=== PATIENT | female | born 1950 | race Asian ===

== ENCOUNTER → 2022-04-12 09:58 | Outpatient (BNVA) | payer MEDICAID, SELFPAY | PROVIDERS: PCP Internal Medicine; Visit Provider Psychiatry & Neurology Neurology | DX: R51.9 Headache, unspecified (principal); G47.00 Insomnia, unspecified; R42 Dizziness and giddiness; Z86.73 Personal history of transient ischemic attack (TIA), and cerebral infarction without residual deficits | CPT/HCPCS: 99202 ==

== ENCOUNTER → 2022-04-19 09:54 | Outpatient (REF) | payer MEDICAID, SELFPAY | LOC: HO.SL 09:54 | PROVIDERS: PCP Internal Medicine; Visit Provider Psychiatry & Neurology Neurology | DX: Z13.89 Encounter for screening for other disorder (principal) ==

== ENCOUNTER → 2022-05-20 11:05 | Outpatient (REF) | payer MEDICAID, SELFPAY | LOC: HO.SL 11:05 | PROVIDERS: PCP Internal Medicine; Visit Provider Psychiatry & Neurology Neurology | DX: G47.00 Insomnia, unspecified (principal); G47.10 Hypersomnia, unspecified; R06.83 Snoring | CPT/HCPCS: 95806 ==

== ENCOUNTER → 2022-06-16 10:07 | Outpatient (BNVA) | payer MEDICAID, SELFPAY | PROVIDERS: PCP Internal Medicine; Visit Provider Psychiatry & Neurology Neurology | DX: R51.9 Headache, unspecified (principal); G89.29 Other chronic pain; G47.00 Insomnia, unspecified; R42 Dizziness and giddiness; Z86.73 Personal history of transient ischemic attack (TIA), and cerebral infarction without residual deficits | CPT/HCPCS: 99212 ==

== ENCOUNTER → 2022-06-29 10:09 | Outpatient (BNVA) | payer MEDICAID, SELFPAY | PROVIDERS: PCP Internal Medicine; Visit Provider Internal Medicine Rheumatology | DX: M75.41 Impingement syndrome of right shoulder (principal); M75.42 Impingement syndrome of left shoulder; M75.81 Other shoulder lesions, right shoulder; M75.82 Other shoulder lesions, left shoulder | CPT/HCPCS: 20610; 99212 ==

== ENCOUNTER 2022-09-01 10:19 | Outpatient (REF) | payer MEDICAID, SELFPAY ==
--- NOTE | ~2022-09-01 | MR_ITS ---
MRI OF THE BRAIN WITHOUT IV CONTRAST INDICATION: Headache. COMPARISON: None available. TECHNIQUE: Multiplanar multisequence MR imaging of the brain was obtained without IV contrast. FINDINGS: There is no hydrocephalus, extra-axial surface collection, or herniation. There is mild chronic microangiopathy an there are chronic infarcts involving the left greater then right cerebellum. The major flow voids at the skull base are preserved. There is no acute infarct on diffusion-weighted imaging. There is no intracranial hemorrhage on the gradient recalled echo acquisition. Chronic hemosiderin staining within the left greater then right cerebellum. The midline structures are normal. The cerebellar tonsils are normally positioned. The craniocervical junction is normal. Occipital craniotomy changes. MR/MR head/brain wo con IMPRESSION: No acute intracranial findings. There is mild chronic microangiopathy an there are chronic infarcts involving the left greater then right cerebellum. Chronic hemosiderin staining within the left greater then right cerebellum.
== END 2022-09-01 10:20 | disposition home or self-care (01) ==
LOC: HO.MRI 10:19
PROVIDERS: PCP Internal Medicine; Visit Provider Nurse Practitioner Family
DX: I61.9 Nontraumatic intracerebral hemorrhage, unspecified (principal); R51.9 Headache, unspecified
CPT/HCPCS: 70551

== ENCOUNTER 2022-09-07 14:00 | Outpatient (RCR) | payer MEDICAID, SELFPAY ==
--- NOTE | 2022-07-27 14:46 | MHC.PT.EP ---
[facility] [place] [facility] [place] [facility] [place] [facility] [address] Kamlesh Gonzalez [address] [phone] F: [phone] F: [phone] F: [phone] F: [phone] Physical Therapy Plan of Care Date of Evaluation: Date of Surgery: Diagnosis: RIGHT shoulder impingement LEFT shoulder impingement Assessment: Patient is a 71 y.o. Slovak speaking female who is referred to PT by Dr. Renzo Alcazar MD, with Dx of RIGHT and LEFT shoulder subacromial impingement. 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 Patient impairments include poor posture, pain, limited ROM, weakness. Patient current functional limitations are Unable to lie on her side, reaching overhead, putting on shirts, doing her hair, reaching to floor, reaching behind her back to shower. Patient will benefit from skilled PT to address aforementioned impairments and functional limitations to meet established goals. Frequency and Duration: The patient will be seen 1x/week for 4 weeks Short Term Goals: 2 weeks Patient demonstrates consistency and independence with HEP to self manage symptoms. Research Project Coordinator Goals: 4 weeks Patient presents with increased bilateral shoulder flexion 130 degrees to be able to reach to do her hair. 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 Treatment Plan: Modalities to reduce pain, spasms and effusion. Manual therapy to restore motion and function. Therapeutic exercise to improve strength and flexibility. Neuromuscular re-education for posture and balance. Therapeutic activities to return to functional activities of daily living. Electronically signed by: Clint Tolliver, PT, DPT Please sign and return to therapist. Thank you for your referral.
--- NOTE | 2022-10-12 15:03 | MHC.PT.DC ---
[facility] [place] Office [place] [facility] [place] Office [address] Kamlesh Gonzalez [address] [phone] F: [phone] F: [phone] F: [phone] F: [phone] Physical Therapy Discharge Report Diagnosis: RIGHT shoulder impingement LEFT shoulder impingement Date of Surgery: Date of Evaluation: 07/27/22 Date of Discharge: 10/12/22 Treatments to Date: 4 Cancellations to Date: 1 No Shows to Date: 1 Discharge Status: Discharge Summary: Patient ceased attending PT on her own accord. She was given HEP. Due to limited visits, difficulty determining effectiveness of PT interventions on patient condition. She is discharged from PT at this time. Electronically signed by: Clint Tolliver, PT, DPT Please sign and return to therapist. Thank you for your referral.
== END 2022-10-12 15:03 | disposition home or self-care (01) ==
LOC: HO.PT 14:00
PROVIDERS: PCP Internal Medicine; Visit Provider Internal Medicine Rheumatology
DX: M75.41 Impingement syndrome of right shoulder (principal); M75.42 Impingement syndrome of left shoulder
CPT/HCPCS: 97110; 97140; 97162; 97530

== ENCOUNTER 2022-10-19 10:24 | Outpatient (AMB) | payer MEDICAID, SELFPAY ==
--- NOTE | 2022-10-19 10:32 | A.OFFVIS_ITS ---
Intake Vital Signs 10/19/22 10:38 Weight 109 lb 2 oz BP 110/82 Blood Pressure Location Lt brachial Position Sitting Pulse 71 Pulse Source Pulse Oximeter Pulse Oximetry (%) 98 Oxygen Delivery Method Room Air Intake Visit Reasons: 4 mnts f/u appt - Confirmed Intake Note: F/U headaches, states headaches and dizziness starts on the daily bases at the same time in the afternoon, Virtualization Consultant Required: No Allergies diclofenac Allergy (Severe, Verified 10/19/22 10:34) Itching nabumetone [From Relafen] Allergy (Unknown, Verified 10/19/22 10:34) Rash HPI HPI Comments History of Present Illness Details 72 y/o female patient with hx of CVA and abnomal CT comes for follow up of headaches. Pt is accompanied by her son who helps her history and interpretation. Pt still reports dizziness with nausea and headaches. She reports neck muscle tightness, tried physical therapy for neck pain and back pain but it did not helpful. She stopped taking Tylenol and uses sparingly. The home sleep study was inconclusive. Pt did not sleep well during the sleep study, she was mostly awake. Pt has trouble falling asleep and staying asleep with daytime sleepiness. Pt tried melatonin 5 mg, but not really helpful. Pt is on magnesium 400 mg and gabapentin 200 mg qHS for headache prevention. PFSH Medical History Colon polyps CVA (cerebrovascular accident due to intracerebral hemorrhage) Diabetes GERD (gastroesophageal reflux disease) HTN (hypertension) Hyperlipidemia Lumbar spondylosis Osteoarthritis Osteopenia Post herpetic neuralgia Vitamin D deficiency Surgical History H/O: hysterectomy History of brain surgery Social History Alcohol intake: never Patient Tobacco Use Status: Never used Tobacco Review of Systems Const All systems reviewed & are unremarkable except as noted in HPI and below Physical Exam Vital Signs: Last Vital Signs Pulse 71 10/19/22 10:38 BP 110/82 10/19/22 10:38 Pulse Ox 98 10/19/22 10:38 Oxygen Delivery Method Room Air 10/19/22 10:38 Const General: cooperative, healthy appearing, comfortable and no acute distress Nutritional Appearance: average body habitus Orientation/consciousness: patient oriented x3 Eyes Pupils: Equal, round and reactive pupils present Neck Neck: Yes normal visual inspection Neuro Other: Mallampatti grade 4 General: patient oriented x3, tone normal and moves all extremities Cranial nerves: Yes Facial sensation intact/muscles of mastication intact, Yes Equal, round and reactive pupils present, Yes Bilaterally intact EOM present, Yes Nystagmus not present, Yes Normal facial strength present, Yes Midline tongue present and Yes Symmetric palate elevation present Cognition (Neuro): normal cognition Speech: Other speech findings present (Neuro) (normal) Gait exam (Neuro): Other gait observations present (mild slowness, unable to tandem) Motor exam (neuro): 5/5 motor strength present throughout and Normal motor muscle tone present throughout Assessment & Plan Assessment & Plan (1) Chronic headaches: Comment: ? tension headaches with analgesic overuse Code(s): R51.9 - Headache, unspecified; G89.29 - Other chronic pain (2) Insomnia: Comment: snoring hypersomnia Code(s): G47.00 - Insomnia, unspecified (3) CVA (cerebrovascular accident due to intracerebral hemorrhage): Comment: January 2022: Required decompressive procedure. Code(s): I61.9 - Nontraumatic intracerebral hemorrhage, unspecified (4) Dizziness: Comment: ? vertigo ? residual from her posterior circulation CVA Code(s): R42 - Dizziness and giddiness Plan Continue to take gabapentin 200mg and magnesium 400 mg qhs to help with sleep and headaches. Start vitamin B2 400 mg daily. Home sleep study was inconclusive, ordered PSG sleep study for detailed evaluation. Continue meclizine as needed. Orders: Orders RT PSG in-lab sleep study 10/19/22 G47.00 - Insomnia, unspecified, G89.29 - Other chronic pain, I10 - Essential (primary) hypertension, I61.9 - Nontraumatic intracerebral hemorrhage, unspecified, R40.0 - Somnolence, R51.9 - Headache, unspecified Medications: New riboflavin (vitamin B2) 400 mg PO DAILY 30 days 30 tabs 3RF magnesium oxide 400 mg PO DAILY 30 days 30 tabs 3RF Coding Level of Care Code Est Pt Level 4 (66282) Diagnoses Chronic headaches R51.9; G89.29 Insomnia G47.00 CVA (cerebrovascular accident due to intracerebral hemorrhage) I61.9 Dizziness R42
[2022-10-19 10:38] VITALS: BP 110/82; PULSE 71; O2SAT 98
== END 2022-10-19 11:05 | disposition home or self-care (01) ==
PROVIDERS: Visit Provider Nurse Practitioner Family
DX: R51.9 Headache, unspecified (principal); G89.29 Other chronic pain; G47.00 Insomnia, unspecified; I61.9 Nontraumatic intracerebral hemorrhage, unspecified; R42 Dizziness and giddiness
CPT/HCPCS: 99214

== ENCOUNTER → 2022-10-19 10:24 | Outpatient (BNVA) | payer MEDICAID, SELFPAY | PROVIDERS: Visit Provider Nurse Practitioner Family | DX: R51.9 Headache, unspecified (principal); G47.00 Insomnia, unspecified; I61.9 Nontraumatic intracerebral hemorrhage, unspecified; R42 Dizziness and giddiness; G89.29 Other chronic pain | CPT/HCPCS: 99214 ==

== ENCOUNTER → 2022-11-08 19:30 | Outpatient (REF) | payer MEDICAID, SELFPAY | LOC: HO.SL 19:30 | PROVIDERS: PCP Internal Medicine; Visit Provider Nurse Practitioner Family | DX: G47.00 Insomnia, unspecified (principal); G89.29 Other chronic pain; R40.0 Somnolence; I61.9 Nontraumatic intracerebral hemorrhage, unspecified | CPT/HCPCS: 95810 ==

== ENCOUNTER → 2022-11-08 21:42 | Outpatient (BNV) | payer MEDICAID, SELFPAY | PROVIDERS: PCP Internal Medicine; Visit Provider Psychiatry & Neurology Neurology | DX: R06.83 Snoring (principal) | CPT/HCPCS: 95810 ==

== ENCOUNTER 2023-01-11 11:27 | Outpatient (AMB) | payer MEDICAID, SELFPAY ==
[2023-01-11 11:30] VITALS: BP 118/74; PULSE 75; O2SAT 98; BMI 25.0
--- NOTE | 2023-01-11 11:30 | A.OFFVIS_ITS ---
Intake Vital Signs 01/11/23 11:30 Height 4 ft 7 in Weight 107 lb 6 oz BMI 25.0 BP 118/74 Blood Pressure Location Lt brachial Position Sitting Pulse 75 Pulse Source Pulse Oximeter Pulse Oximetry (%) 98 Oxygen Delivery Method Room Air Intake Visit Reasons: 2mnts f/u appt - Confirmed Intake Note: Pt presents to the office today for a 2 month follow up appt with son and daughter in law. Pts son states that he believes that the headaches are improving but he states she is always nauseous and dizzy every day. Allergies diclofenac Allergy (Severe, Verified 01/11/23 11:33) Itching nabumetone [From Relafen] Allergy (Unknown, Verified 01/11/23 11:33) Rash HPI HPI Comments History of Present Illness Details 72 y/o female patient with hx of CVA pre sents for follow up of he adaches and sleep study. Pt is accompanied by her son who helps her history and interpretation. Pt reports that her headache intensity has improved a lot, but still has mild headache daily and it is manageable. Pt still reports dizziness with nausea. She uses zofran and meclizine every day. Pt's son states that she does not tolerate food what she usually eats, keep having burp and nausea. She was evaluated by GI and had endoscopy done, but could not have good result, because she had solid food before the endoscopy. The PSG sleep study result was no evidence of sleep apnea but frequent limb movement was noted. Pt's son states that patient sleeps much better with gabapentin 200 mg. PFSH Medical History CVA (cerebrovascular accident due to intracerebral hemorrhage) Hyperlipidemia Vitamin D deficiency Colon polyps Post herpetic neuralgia Osteoarthritis Osteopenia Lumbar spondylosis GERD (gastroesophageal reflux disease) Diabetes HTN (hypertension) Surgical History H/O: hysterectomy History of brain surgery Social History Alcohol intake: never Patient Tobacco Use Status: Never used Tobacco Review of Systems Const All systems reviewed & are unremarkable except as noted in HPI and below Physical Exam Vital Signs: Last Vital Signs Pulse 75 01/11/23 11:30 BP 118/74 01/11/23 11:30 Pulse Ox 98 01/11/23 11:30 Oxygen Delivery Method Room Air 01/11/23 11:30 BMI result Body Mass Index 25.0 Const General: cooperative, healthy appearing, comfortable and no acute distress Nutritional Appearance: average body habitus Orientation/consciousness: patient oriented x3 Eyes Pupils: Equal, round and reactive pupils present Neck Neck: Yes normal visual inspection Neuro Other: Mallampatti grade 4 General: patient oriented x3, tone normal and moves all extremities Cranial nerves: Yes Facial sensation intact/muscles of mastication intact, Yes Equal, round and reactive pupils present, Yes Bilaterally intact EOM present, Yes Nystagmus not present, Yes Normal facial strength present, Yes Midline tongue present and Yes Symmetric palate elevation present Cognition (Neuro): normal cognition Speech: Other speech findings present (Neuro) (normal) Gait exam (Neuro): Other gait observations present (mild slowness, unable to tandem) Motor exam (neuro): 5/5 motor strength present throughout and Normal motor muscle tone present throughout Assessment & Plan Assessment & Plan (1) Chronic headaches: Comment: ? tension headaches with analgesic overuse Code(s): R51.9 - Headache, unspecified; G89.29 - Other chronic pain (2) Insomnia: Comment: snoring hypersomnia Code(s): G47.00 - Insomnia, unspecified (3) CVA (cerebrovascular accident due to intracerebral hemorrhage): Comment: January 2022: Required decompressive procedure. Code(s): I61.9 - Nontraumatic intracerebral hemorrhage, unspecified (4) Dizziness: Comment: ? vertigo ? residual from her posterior circulation CVA Code(s): R42 - Dizziness and giddiness (5) Nausea: Code(s): R11.0 - Nausea Plan Continue to take gabapentin 200mg and magnesium 400 mg qhs to help with sleep and headaches and PLMD. Continue to take vitamin B2 400 mg daily. Continue meclizine as needed. Advised patient to try probiotics q AM and digestive enzyme with meals. Medications: Refilled riboflavin (vitamin B2) 400 mg PO DAILY 30 days 30 tabs 3RF magnesium oxide 400 mg PO DAILY 30 days 30 tabs 3RF gabapentin 200 mg (2 x 100 mg) PO BEDTIME 60 caps 6RF Coding Level of Care Code Est Pt Level 4 (35439) Diagnoses Chronic headaches R51.9; G89.29 Insomnia G47.00 CVA (cerebrovascular accident due to intracerebral hemorrhage) I61.9 Dizziness R42 Nausea R11.0
== END 2023-01-11 12:01 | disposition home or self-care (01) ==
PROVIDERS: PCP Internal Medicine; Visit Provider Nurse Practitioner Family
DX: R51.9 Headache, unspecified (principal); G89.29 Other chronic pain; G47.00 Insomnia, unspecified; I61.9 Nontraumatic intracerebral hemorrhage, unspecified; R42 Dizziness and giddiness; R11.0 Nausea
CPT/HCPCS: 99214

== ENCOUNTER → 2023-01-11 11:27 | Outpatient (BNVA) | payer MEDICAID, SELFPAY | PROVIDERS: PCP Internal Medicine; Visit Provider Nurse Practitioner Family | DX: R51.9 Headache, unspecified (principal); G89.29 Other chronic pain; G47.00 Insomnia, unspecified; R42 Dizziness and giddiness; I10 Essential (primary) hypertension; Z86.73 Personal history of transient ischemic attack (TIA), and cerebral infarction without residual deficits; Z79.899 Other long term (current) drug therapy | CPT/HCPCS: 99212 ==

== ENCOUNTER 2023-05-31 11:08 | Outpatient (AMB) | payer MEDICAID, SELFPAY ==
--- NOTE | 2023-05-31 11:11 | MHC.OFFVIS ---
Intake Vital Signs 05/31/23 11:17 Height 4 ft 7 in Weight 108 lb 2 oz BMI 25.1 BP 112/60 Blood Pressure Location Lt brachial Position Sitting Pulse 80 Pulse Source Pulse Oximeter Pulse Oximetry (%) 99 Oxygen Delivery Method Room Air Intake Visit Reasons: f/u appt- LVM Intake Note: Patient presents for f/u. x4 to x5 headaches a week around midway of the day Allergies diclofenac Allergy (Severe, Verified 05/31/23 11:16) Itching nabumetone [From Relafen] Allergy (Unknown, Verified 05/31/23 11:16) Rash Medication List - Last Reconciled 05/31/23 by Meredith Roque CNP acetaminophen ER 650 mg PO Q8H PRN amlodipine 5 mg PO DAILY atorvastatin 80 mg PO DAILY blood sugar diagnostic (FreeStyle Lite Strips) As directed cholecalciferol (vitamin D3) (Vitamin D3) 25 mcg PO DAILY dicyclomine 10 mg PO TID PRN famotidine 20 mg PO DAILY fluticasone propionate 50 mcg/actuation 2 sprays intranasal DAILY gabapentin 200 mg (2 x 100 mg) PO BEDTIME lancets (FreeStyle Lancets) As directed lisinopril 40 mg PO DAILY magnesium oxide 400 mg PO DAILY 30 days meclizine 25 - 50 mg PO TID PRN melatonin 5 mg PO QPM metformin ER 500 mg PO BID ondansetron HCl 4 - 8 mg PO Q8H PRN pantoprazole 40 mg PO BID riboflavin (vitamin B2) 400 mg PO DAILY 30 days sertraline 50 mg PO DAILY HPI HPI Comments History of Present Illness Details 72 y/o female patient with hx of CVA presents for follow up of headache. Pt is accompanied by her son who helps her history and interpretation. Pt's son reports that patient's headache intensity has improved with magnesium, vitamin B2 but not helpful to reduce frequency. She continues to have mild degree of daily headache, always around 10-11 am. She he takes Tylenol almost everyday, and it relieves the headache. She states that her top scalp is very sensitive and hurts. Her headache is accompanied with neck pain. Pt continues to have nausea and dizziness but it is not related to headache. She takes meclizine everyday for dizziness. Pt's son reports patient takes probiotics daily, and she eats better and has less burping. The PSG sleep study result was no evidence of sleep apnea but frequent limb movement was noted. Pt's son states that patient sleeps much better with gabapentin 200 mg and melatonin 5 mg. [facility] Medical History CVA (cerebrovascular accident due to intracerebral hemorrhage) Hyperlipidemia Vitamin D deficiency Colon polyps Post herpetic neuralgia Osteoarthritis Osteopenia Lumbar spondylosis GERD (gastroesophageal reflux disease) Diabetes HTN (hypertension) Surgical History H/O: hysterectomy History of brain surgery Social History Alcohol intake: never Patient Tobacco Use Status: Never used Tobacco Review of Systems Const All systems reviewed & are unremarkable except as noted in HPI and below Physical Exam Vital Signs: Last Vital Signs Pulse 80 05/31/23 11:17 BP 112/60 05/31/23 11:17 Pulse Ox 99 05/31/23 11:17 Oxygen Delivery Method Room Air 05/31/23 11:17 BMI result Body Mass Index 25.1 Const General: cooperative, healthy appearing, comfortable and no acute distress Nutritional Appearance: average body habitus Orientation/consciousness: patient oriented x3 Eyes Pupils: Equal, round and reactive pupils present Neck Neck: Yes normal visual inspection Neuro Other: Mallampatti grade 4 General: patient oriented x3, tone normal and moves all extremities Cranial nerves: Yes Facial sensation intact/muscles of mastication intact, Yes Equal, round and reactive pupils present, Yes Bilaterally intact EOM present, Yes Nystagmus not present, Yes Normal facial strength present, Yes Midline tongue present and Yes Symmetric palate elevation present Cognition (Neuro): normal cognition Speech: Other speech findings present (Neuro) (normal) Gait exam (Neuro): Other gait observations present (mild slowness, unable to tandem) Motor exam (neuro): 5/5 motor strength present throughout and Normal motor muscle tone present throughout Assessment & Plan Assessment & Plan (1) Chronic headaches: Comment: ? tension headaches with analgesic overuse Code(s): R51.9 - Headache, unspecified; G89.29 - Other chronic pain (2) Insomnia: Comment: snoring hypersomnia Code(s): G47.00 - Insomnia, unspecified (3) Dizziness: Comment: ? vertigo ? residual from her posterior circulation CVA Code(s): R42 - Dizziness and giddiness (4) Nausea: Code(s): R11.0 - Nausea Plan Continue to take gabapentin 200mg and magnesium 400 mg qhs to help with sleep and headaches and PLMD. Continue to take vitamin B2 400 mg daily. Advised patient to try baclofen 5 mg q HS for neck pain and headache. Continue meclizine as needed. Advised patient to try probiotics q AM. Medications: New baclofen 5 mg PO BEDTIME 30 days 30 tabs 2RF Coding Level of Care Code Est Pt Level 4 (05299) Diagnoses Chronic headaches R51.9; G89.29 Insomnia G47.00 Dizziness R42 Nausea R11.0
[2023-05-31 11:17] VITALS: BP 112/60; PULSE 80; O2SAT 99; BMI 25.1
== END 2023-05-31 11:39 | disposition home or self-care (01) ==
PROVIDERS: PCP Internal Medicine; Visit Provider Nurse Practitioner Family
DX: R51.9 Headache, unspecified (principal); G89.29 Other chronic pain; G47.00 Insomnia, unspecified; R42 Dizziness and giddiness; R11.0 Nausea
CPT/HCPCS: 99214

== ENCOUNTER → 2023-05-31 11:08 | Outpatient (BNVA) | payer MEDICAID, SELFPAY | PROVIDERS: PCP Internal Medicine; Visit Provider Nurse Practitioner Family | DX: R51.9 Headache, unspecified (principal); G89.29 Other chronic pain; G47.00 Insomnia, unspecified; R42 Dizziness and giddiness; R11.0 Nausea | CPT/HCPCS: 99212 ==

== ENCOUNTER 2023-09-27 11:17 | Outpatient (AMB) | payer MEDICAID, SELFPAY ==
--- NOTE | 2023-09-27 11:38 | MHC.OFFVIS ---
Vital Signs 09/27/23 11:39 Height 4 ft 7 in Weight 109 lb BMI 25.3 BP 118/82 Blood Pressure Location Rt brachial Position Sitting Intake Visit Reasons: 4 mo f/u-CONF Intake Note: patient presents for follow up. still having nausea,dizziness and headaches. Allergies diclofenac Allergy (Severe, Verified 09/27/23 11:42) Itching nabumetone [From Relafen] Allergy (Unknown, Verified 09/27/23 11:42) Rash Medication List - Last Reconciled 09/27/23 by PITER Mao acetaminophen ER 650 mg PO Q8H PRN amitriptyline 10 - 20 mg (1 - 2 x 10 mg) PO BEDTIME 30 days amlodipine 5 mg PO DAILY atorvastatin 80 mg PO DAILY baclofen 5 mg PO BEDTIME 30 days blood sugar diagnostic (FreeStyle Lite Strips) As directed cholecalciferol (vitamin D3) (Vitamin D3) 25 mcg PO DAILY dicyclomine 10 mg PO TID PRN famotidine 20 mg PO DAILY fluticasone propionate 50 mcg/actuation 2 sprays intranasal DAILY lancets (FreeStyle Lancets) As directed lisinopril 40 mg PO DAILY magnesium oxide 400 mg PO DAILY 30 days meclizine 25 - 50 mg PO TID PRN melatonin 5 mg PO QPM 30 days metformin ER 500 mg PO BID ondansetron HCl 4 - 8 mg PO Q8H PRN pantoprazole 40 mg PO BID riboflavin (vitamin B2) 400 mg PO DAILY 30 days sertraline 50 mg PO DAILY HPI Comments Details: 73-yr-old female presents for f/u visit. Pt denies any significant interval medical changes. She continues to have a constant head discomfort. The headache is mostly a stabbing in the back of the head and moves into the neck a/w photophobia and phonophobia, nausea. The Gabapentin helps a little. She continues to have frequent dizziness, however taking Maclizine every day helps- takes between 2-3 tabs per day. States if she does not take the Meclizine, she cannot get OOB d/t severe dizziness and nausea. [facility] Medical History CVA (cerebrovascular accident due to intracerebral hemorrhage) Hyperlipidemia Vitamin D deficiency Colon polyps Post herpetic neuralgia Osteoarthritis Osteopenia Lumbar spondylosis GERD (gastroesophageal reflux disease) Diabetes HTN (hypertension) Surgical History H/O: hysterectomy History of brain surgery Social History Alcohol intake: never Patient Tobacco Use Status: Never used Tobacco Physical Exam Vital Signs: Last Vital Signs BP 118/82 09/27/23 11:39 BMI result Body Mass Index 25.3 Const General: cooperative and no acute distress Orientation/consciousness: patient oriented x3 Resp Effort & Inspection: normal respiratory effort and able to speak in complete sentences Neuro General: patient oriented x3 Cranial nerves: Yes CN's II-XII intact bilaterally Cognition (Neuro): normal cognition Psych Appearance: grossly normal Mental Status: mental status grossly normal Speech and movement: Normal speech and movement present Affect: normal affect Attitude: cooperative Assessment & Plan Assessment & Plan (1) Chronic migraine without aura: Code(s): G43.709 - Chronic migraine without aura, not intractable, without status migrainosus Category: Medical (2) Dizziness: Comment: ? vertigo ? residual from her posterior circulation CVA Code(s): R42 - Dizziness and giddiness Category: Medical (3) Insomnia: Comment: snoring hypersomnia Code(s): G47.00 - Insomnia, unspecified Category: Medical Plan Stop Gabapentin- not fully effective. Trial Amitriptyline 10-20mg qhs - in hopes this is more effective for headcahe, nausea, dizziness. Continue Riboflavin 400mg qam Continue Magnesium 400mg qhs. Continue Baclofen 10mg qhs prn. Continue Meclizine- managed by OCP. Continue Melatonin 5mg- advised to take q evening. will check w/ son in 4-8 weeks to f/u on effect of above plan. And f/u in clinic in 6 months or sooner prn. Medications: New amitriptyline 10 - 20 mg (1 - 2 x 10 mg) PO BEDTIME 30 days 60 tabs 3RF Changed From melatonin 5 mg PO QPM To melatonin 5 mg PO QPM 30 days 30 tabs 6RF Refilled magnesium oxide 400 mg PO DAILY 30 days 30 tabs 6RF riboflavin (vitamin B2) 400 mg PO DAILY 30 days 30 tabs 6RF Discontinued gabapentin Discontinued Reason: Doctor's Order 200 mg (2 x 100 mg) PO BEDTIME 60 caps 6RF Coding Level of Care Code Est Pt Level 4 (83836) Diagnoses Chronic migraine without aura G43.709 Dizziness R42 Insomnia G47.00
[2023-09-27 11:39] VITALS: BP 118/82; BMI 25.3
== END 2023-09-27 12:20 | disposition home or self-care (01) ==
PROVIDERS: PCP Internal Medicine; Visit Provider Nurse Practitioner Family
DX: G43.709 Chronic migraine without aura, not intractable, without status migrainosus (principal); R42 Dizziness and giddiness; G47.00 Insomnia, unspecified
CPT/HCPCS: 99214

== ENCOUNTER → 2023-09-27 11:17 | Outpatient (BNVA) | payer MEDICAID, SELFPAY | PROVIDERS: PCP Internal Medicine; Visit Provider Nurse Practitioner Family | DX: R42 Dizziness and giddiness (principal); G43.709 Chronic migraine without aura, not intractable, without status migrainosus; G47.00 Insomnia, unspecified | CPT/HCPCS: 99212 ==

== ENCOUNTER 2024-04-24 14:51 | Outpatient (AMB) | payer MEDICAID, SELFPAY ==
[2024-04-24 15:09] VITALS: BP 100/62; PULSE 93; O2SAT 96; BMI 27.2
--- NOTE | 2024-04-24 15:09 | A.OFFVIS_ITS ---
Vital Signs 04/24/24 15:09 Height 4 ft 7 in Weight 117 lb 4 oz BMI 27.2 BP 100/62 Blood Pressure Location Lt brachial Position Sitting Pulse 93 Pulse Source Pulse Oximeter Pulse Oximetry (%) 96 Oxygen Delivery Method Room Air Intake Visit Reasons: 6 mon follow up Intake Note: headache starting from the back(neck) radiating to the lft side of head Allergies diclofenac Allergy (Severe, Verified 04/24/24 15:12) Itching nabumetone [From Relafen] Allergy (Unknown, Verified 04/24/24 15:12) Rash Medication List - Last Reconciled 04/24/24 by PITER Mao acetaminophen ER 650 mg PO Q8H PRN amitriptyline 10 - 20 mg (1 - 2 x 10 mg) PO BEDTIME 30 days amlodipine 5 mg PO DAILY atorvastatin 80 mg PO DAILY baclofen 5 mg PO BEDTIME 30 days blood sugar diagnostic (FreeStyle Lite Strips) As directed cholecalciferol (vitamin D3) (Vitamin D3) 25 mcg PO DAILY dicyclomine 10 mg PO TID PRN famotidine 20 mg PO DAILY fluticasone propionate 50 mcg/actuation 2 sprays intranasal DAILY fremanezumab-vfrm (Ajovy) 225 mg (1.5 mL) subcut ONCE 30 days lancets (FreeStyle Lancets) As directed lisinopril 40 mg PO DAILY magnesium oxide 400 mg PO DAILY 30 days meclizine 25 - 50 mg PO TID PRN melatonin 5 mg PO QPM 30 days metformin ER 500 mg PO BID ondansetron HCl 4 - 8 mg PO Q8H PRN pantoprazole 40 mg PO BID riboflavin (vitamin B2) 400 mg PO DAILY 30 days sertraline 50 mg PO DAILY HPI Comments Details: 73-yr-old female presents for f/u visit of headache. Pt is accompanied by her son, Cam (Humble) Pt denies any significant interval medical changes. She continues to have a constant headache. The headache is a left sided heavy or pressure headache a/w photophobia, phonophobia, scalp sensitivity, and dizziness and nausea, activity intolerance- cannot get OOB when severe. The headache is constant, but intensity fluctuates. The stabbing headache has resolved. She states she is tolerating her medication regimen well, though does have dry mouth and is prone to constipation. She started Amitriptyline 10mg every other night, alt w/ 20mg every other night. She did not stop Gabapentin. She is taking Meclizine either once a day, or 2 tabs bid, or may skip a day. She takes Zofran as needed for nausea and headache. Rarely uses a Tylenol. FOR[facility]LY [facility], [facility] Medical History CVA (cerebrovascular accident due to intracerebral hemorrhage) Hyperlipidemia Vitamin D deficiency Colon polyps Post herpetic neuralgia Osteoarthritis Osteopenia Lumbar spondylosis GERD (gastroesophageal reflux disease) Diabetes HTN (hypertension) Surgical History H/O: hysterectomy History of brain surgery Social History Alcohol intake: never Patient Tobacco Use Status: Never used Tobacco Physical Exam Vital Signs: Last Vital Signs Pulse 93 04/24/24 15:09 BP 100/62 04/24/24 15:09 Pulse Ox 96 04/24/24 15:09 Oxygen Delivery Method Room Air 04/24/24 15:09 BMI result Body Mass Index 27.2 Const General: cooperative and no acute distress Orientation/consciousness: patient oriented x3 Resp Effort & Inspection: normal respiratory effort and able to speak in complete sentences Neuro General: patient oriented x3 Cranial nerves: Yes CN's II-XII intact bilaterally Cognition (Neuro): normal cognition Psych Appearance: grossly normal Mental Status: mental status grossly normal Speech and movement: Normal speech and movement present Affect: normal affect Attitude: cooperative Assessment & Plan Assessment & Plan (1) Chronic migraine without aura: Code(s): G43.709 - Chronic migraine without aura, not intractable, without status migrainosus Category: Medical (2) Dizziness: Comment: ? Vestibular migraine? residual from her posterior circulation CVA Code(s): R42 - Dizziness and giddiness Category: Medical (3) Insomnia: Comment: snoring hypersomnia Code(s): G47.00 - Insomnia, unspecified Category: Medical Plan For migraine prevention Tx: Patient again advised to stop Gabapentin, as it is not fully effective. Adjust Amitriptyline to 20mg qhs - the would not increase further due to patient already has constipation and dry mouth. Start Ajovy 225mg/1.5ml autoinjector- injection 225mg subcutaneously once a month. Potential adverse effects of Ajovy include but are not limited to injection site reactions. Pt advised Ajovy will likely require insurance prior authorization. Ajovy should be refrigerated until 1 hr prior use. Once approved and available patient would like in office injection training. Continue Riboflavin 400mg qam Continue Magnesium 400mg qhs. Continue Melatonin 5mg daily and evening for sleep. Migraine prevention treatment contraindications: Beta-blockers or additional antihypertensive treatment, as patient is already on amlodipine and is prone to hypotension and dizziness. For acute migraine Tx: May use Tylenol 650-1000 mg every 4-6 hours p.r.n. Continue Baclofen 5mg qhs prn for muscle tightness. Continue Meclizine p.r.n.- managed by PCP. Continue ondansetron p.r.n.-managed by PCP. Acute migraine treatment contraindications: All triptans and DHE due to history of CVA. All NSAIDs due to diabetes dx, as well as diclofenac allergy. Pt to follow-up in 6 months or sooner prn. Medications: New fremanezumab-vfrm (Ajovy) administer 225mg sc q month 225 mg (1.5 mL) subcut ONCE 30 days 1.5 mL 6RF Refilled magnesium oxide 400 mg PO DAILY 30 days 30 tabs 6RF riboflavin (vitamin B2) 400 mg PO DAILY 30 days 30 tabs 6RF baclofen 5 mg PO BEDTIME 30 days 30 tabs 3RF Coding Level of Care Code Est Pt Level 4 (90046) Diagnoses Chronic migraine without aura G43.709 Dizziness R42 Insomnia G47.00
--- OUTSIDE RECORDS SUMMARY | 2024-04-24 17:22 | XMS_ITS | Clinical Summary ---
Author Organization [address] [place] [address] Address [address] [place] [address] Phone Care Team Providers Care Canvas Cutter Machine Name Role Phone Gadiel Beasley MD Primary Care Provider [phone] Allergies Active Allergy Reactions Criticality Noted Date Comments Diclofenac Hives 12/23/2013 Nabumetone Rash 02/26/2020 ? Rash right after taking (presentation atypical) Medications Medication Sig Dispensed Refills Start Date End Date Status gabapentin (NEURONTIN) 100 mg capsule Take 2 capsules (200 mg total) by mouth. 05/24/2023 Active gabapentin (NEURONTIN) 300 mg capsule Take 1 capsule (300 mg total) by mouth. 04/27/2022 Active meclizine (ANTIVERT) 25 mg tablet Take 1 Tablet by mouth 3 times daily as needed (dizziness). - Oral Active metFORMIN XR (GLUCOPHAGE-XR) 500 mg 24 hr tablet Take 2 Tablets by mouth 2 times daily (with meals). - Oral Active atorvastatin (LIPITOR) 80 mg tablet Take 1 tablet (80 mg total) by mouth 1 (one) time each day. 05/18/2023 Active simethicone (Phazyme) 250 mg capsule Take 1 capsule by mouth. 05/15/2023 Active ondansetron (ZOFRAN) 4 mg tablet Take 1-2 tablets (4-8 mg total) by mouth. 05/15/2023 Active sertraline (ZOLOFT) 100 mg tablet Take 1 tablet (100 mg total) by mouth 1 (one) time each day. 05/05/2023 Active polyethylene glycol (Miralax) 17 gram/dose oral powder 17 g. 04/28/2023 Active clobetasoL 0.05 % shampoo Apply 1 film topically. 04/28/2023 Active aspirin-acetaminop hen-caffeine (EXCEDRIN MIGRAINE) 250-250-65 mg per tablet Take 1 tablet by mouth. 04/28/2023 Active hydroCHLOROthiazid e (HYDRODIURIL) 25 mg tablet Take 1 tablet (25 mg total) by mouth. 04/10/2023 Active loratadine (CLARITIN) 10 mg tablet Take 1 tablet (10 mg total) by mouth 1 (one) time each day. 04/04/2023 Active acetaminophen (TYLENOL 8 HOUR) 650 mg 8 hr tablet Take 1 tablet (650 mg total) by mouth every 8 (eight) hours if needed. 04/04/2023 Active famotidine (PEPCID) 20 mg tablet Take 1 Tablet by mouth 2 times daily. - Oral Active pantoprazole (PROTONIX) 40 mg EC tablet Take 1 tablet (40 mg total) by mouth 2 (two) times a day. 02/06/2023 Active triamcinolone (KENALOG) 0.025 % cream Apply sparingly to affected area twice daily. 06/01/2022 Active lidocaine (ZTlido) 1.8 % adhesive patch,medicated Apply 1 Package topically. 11/10/2022 Active fluticasone propionate (FLONASE) 50 mcg/actuation nasal spray Administer 2 sprays into affected nostril(s). 10/06/2022 Active cholecalciferol (VITAMIN D-3) 25 mcg (1,000 unit) capsule Take 1 capsule (1,000 Units total) by mouth 1 (one) time each day. 02/28/2022 Active dicyclomine (BENTYL) 10 mg capsule Take 1 capsule (10 mg total) by mouth. 03/02/2022 Active amitriptyline (ELAVIL) 10 mg tablet Take 1 tablet (10 mg total) by mouth at bedtime. 10/12/2021 Active blood sugar diagnostic (FreeStyle Lite Strips) test strip Use to test blood sugars 4 times a day. 01/18/2023 Active FREESTYLE LANCETS MISC Use to check bs daily Dx: 11.40. 01/18/2023 Active FREESTYLE LANCETS MISC Use to check bs daily Dx: 11.40. 09/22/2023 Active blood-glucose meter (FREESTYLE LITE METER [facility]) 1 Device by Does not apply route daily. 09/22/2023 Active blood glucose control high,low (FreeStyle Control) solution Use to calibrate machine Dx: 11.40 10/20/2022 Active blood sugar diagnostic (FreeStyle Lite Strips) test strip Use to test blood sugars daily 09/22/2023 Active melatonin 5 mg tablet Take 1 Tablet by mouth every evening. 09/27/2023 Active nutritional drink (Ensure Active High Protein) liquid Take 1 Can by mouth 2 times daily. 10/12/2023 Active ergocalciferol, vitamin D2, 50 mcg (2,000 unit) capsule Take 1 Capsule by mouth daily. 07/24/2023 Active blood sugar diagnostic (FreeStyle Lite Strips) test strip USE TO TEST BLOOD SUGARS 4 TIMES A DAY 200 strip 3 02/23/2024 Active amLODIPine (NORVASC) 10 mg tablet Take 1 tablet (10 mg total) by mouth 1 (one) time each day. 90 tablet 02/26/2024 08/24/2024 Active Active Problems Problem Noted Date Diagnosed Date Swelling of both ankles 02/08/2024 HTN (hypertension) 05/31/2023 Overview (05/31/2023): 03/09/16 negative maximal stress test. Current mild episode of major depressive disorde r 02/07/2022 Cerebellar stroke 02/02/2022 Overview (05/31/2023): Last Assessment & Plan: Patient is just over 2 weeks s/p posterior fossa craniotomy for left cerebellar stroke causing cerebellar swelling, occlusion of the fourth ventricle and developing hydrocephalus. Patient came in with her son, who is interpreting, postop she has had some irritation of the incision/itching, using Tylenol daily. Yesterday she had left posterior headache, mild that has since resolved. She has not had any wound drainage, fever, sweats chills. He states the family is very happy to see if she has minimal residual symptoms from her stroke. She has been ambulating around the house with a walker. One of their concerns if she still has some nausea, does not seem to be digesting food as well, is eating less, taking Zofran. However he does not notice any difficulty swallowing or choking. She has follow-up with her PCP. Ms. Stephenson is doing well postop, incision healing well, sutures removed without complication. Postop questions answered. Referral placed to neurology, patient had a referral placed with Dr. Costa back in June 2021, patient's son states he thinks they called to set up an appointment at 1 point but the patient was not in the area at that time and she never followed up with neurology. They will call with any concerns or questions, like wound drainage, weakness or increasing headache. Insomnia 12/20/2017 Type 2 diabetes mellitus wit h diabetic neuropathy, without long-term current use of insulin 12/20/2017 Overview (05/31/2023): Ophth is Dr Almas Kevin Osteoarthritis of bilateral glenohumeral joints 09/13/2017 Primary osteoarthritis of both knees 09/13/2017 Spondylosis of lumbar region without myelopathy or radiculopathy 09/13/2017 Colon polyps 08/16/2017 Osteopenia 05/13/2015 Vitamin D deficiency 02/04/2015 Hyperlipidemia 05/16/2014 Encounters Date Type Department Care Team Description 03/18/2024 Billing Patient Not Present [facility] [address] [place], [place] [address] [phone] Gadiel Beasley MD Type 2 diabetes mellitus with hyperglycemia, unspecified whether middle or intermediate school principal insulin use ([facility]) (Primary Dx); Essential (primary) hypertension; Hyperlipidemia, unspecified hyperlipidemia type; Insomnia due to medical condition; Depression, unspecified depression type; Generalized anxiety disorder 03/14/2024 Telephone Internal Medicine - [address] [place] [phone] Gadiel Beasley MD Faxed Order ([facility] (Recert and POC)) 03/14/2024 [facility] [address] [place] [phone] Gadiel Beasley MD Faxed Order ([facility] ) 02/08/2024 3:30 PM EST Consult Vascular Surgery - [place] [address] [facility] [address] [place] [address] Jorge Mcmahan MD Swelling of both ankles (Primary Dx); Type 2 diabetes mellitus with diabetic neuropathy, without long-term current use of insulin ([facility]); Localized edema from Last 3 Months Immunizations Name Administration Dates Next Due Influenza trivalent, 0.5mL ( Fluzone High-dose) 65yo and older 02/14/2022,02/17/2021,12/31/2019,12/20 Pneumococcal conjugate 13 va lent (Prevnar 13, PCV13) 2mo and older 11/23/2016 Pneumococcal polysaccharide 23 valent (Pneumovax 23) 2yo and older 12/20/2017 Td Tetanus diptheria (Tdvax) 7yo and older 11/23/2016 Surgical History Surgery Date Site/Laterality Comments HYSTERECTOMY PROCEDURE: HISTORICAL HYSTERECTOMY; COMMENT: had incision dehiscence and had second surgery done in [facility] COLONOSCOPY 07/27/2017 PROCEDURE: HISTORICAL COLONOSCOPY; COMMENT: 4 mm polyp ascending colon: histolgy obscured by cautery artifact; repeat in 5 yrs. Medical History Medical History Date Comments Arthritis DX:Arthritis HTN (hypertension) DX:HTN (hyper tension) Hyperlipidemia 05/16/2014 DX:Hyperlipidemi a Osteopenia DX:Osteopenia Diabetes mellitus type 2, co ntrolled, with complications ([facility]) DX:Diabetes mellitus type 2, controlled, with complications ([facility]) Colon polyps 08/16/2017 DX:Colon polyps Family History Medical History Relation Name Comments No Known Problems Aunt No Known Problems Brother No Known Problems Father No Known Problems Maternal Grandfather No Known Problems Maternal Grandmother No Known Problems Mother No Known Problems Other No Known Problems Paternal Grandfather No Known Problems Paternal Grandmother No Known Problems Sister No Known Problems Uncle Blindness Neg Hx Breast cancer Neg Hx Cataracts Neg Hx Glaucoma Neg Hx Macular degeneration Neg Hx Strabismus Neg Hx Relation Name Status Comments Aunt Brother Father Maternal Grandfather Maternal Grandmother Mother Alive Other Paternal Grandfather Paternal Grandmother Sister Uncle Social History Tobacco Use Types Packs/Day Years Used Date Smoking Tobacco: Never Smokeless Tobacco: Never Alcohol Use Standard Drinks/Week Comments No 0 (1 standard drink = 0.6 oz pur e alcohol) Sex and Gender Information Value Date Recorded Sex Assigned at Not on file Gender Identity Not on file Sexual Orientation Not on file Job Start Date Occupation Industry Not on file Not on file Not on file Obstetrics History Last Filed Vital Signs Vital Sign Reading Time Taken Comments Blood Pressure 132/70 01/24/2024 10:03 AM EDT Pulse 88 01/24/2024 10:03 AM EDT Temperature - - Respiratory Rate - - Oxygen Saturation - - Inhaled Oxygen Concentration - - Weight 51.2 kg (112 lb 14.4 oz) 024 10:03 AM EDT Height 137.2 cm (4' 6 ) 01/24/2024 10:0 3 AM EDT Body Mass Index 27.22 01/24/2024 10:03 AM EDT Plan of Treatment Upcoming Encounters Date Type Department Care Team (Late st Contact Info) Description 06/03/2024 8:00 AM EST Office Visit Internal Medicine [address] [address] Gadiel Beasley MD [address] [place] [id number] 06/12/2024 1:30 PM EDT Office Visit Vascular Surgery - [place] [address] [facility] [address] [place] [address] Kierra Romero PA [address] [place] [address] Health Maintenance Due Date Last Done Comments Diabetes: Annual Foot Exam 08/04/1959 Zoster Vaccines (1 of 2) 08/04/1999 RSV Immunization Patients 60+ Years Old (1 - Risk 60-74 years 1-dose series) 2009 Depression Screening 03/12/2022 Falls Risk Assessment 03/12/2022 Social Influencers of Health Screening 03/12/2022 COVID-19 Vaccine ( season) 2023 09/16/2020, 08/26/2020 Breast Cancer Screening 05/11/2024 05/11/19, 05/05/2021, 04/29/2020, Additional history exists Diabetes: Annual Urine Albumin-Creatinine Ratio (uACR) 05/24/2024 05/24/2023 Diabetes: Blood Sugar Control Test (HGBA1C) 07/24/2024 01/24/2024, 09/22/2023, 09/22/2023 Diabetes: Annual Retina Eye Exam 08/22/2024 08/23/2023 Diabetes: Annual GFR (Glomerular Filtration Rate) 01/23/2025 01/24/2024, 10/17/2023, 10/17/2023, Additional history exists Hypertension/CHF/CAD Annual BMP Blood Test 01/23/2025 01/24/2024, 10/17/2023, 10/17/2023, Additional history exists DTaP,Tdap,and Td Vaccines (2 - Td or Tdap) 11/23/2026 11/23/2016 Osteoporosis Screening (Bone Density Screening) 01/04/2027 01/04/2017 Colorectal Cancer Screening: Colonoscopy 04/06/2028 04/06/2023 Cholesterol Screening (Lipid Panel) 01/23/2029 01/24/2024, 09/22/2023, 09/22/2023 Hepatitis C Screening Completed 01/26/2014 Pneumococcal Vaccine: 65+ Years Completed 12/20/2017, 11/23/2016 Influenza Vaccine Completed 01/24/2024, , 02/17/2021, Additional history exists HIB Vaccines Aged Out No longer eligi ble based on patient's age to complete this topic HPV Vaccines Aged Out No longer eligi ble based on patient's age to complete this topic Hepatitis A Vaccines Aged Out No long er eligible based on patient's age to complete this topic Hepatitis B Vaccines Aged Out No long er eligible based on patient's age to complete this topic IPV Vaccines Aged Out No longer eligi ble based on patient's age to complete this topic MMR Vaccines Aged Out No longer eligi ble based on patient's age to complete this topic Meningococcal ACWY Vaccine Aged Out N o longer eligible based on patient's age to complete this topic RSV Immunization Patients Under 20 months Aged Out No longer eligible based on patient's age to complete this topic Varicella Vaccines Aged Out No longer eligible based on patient's age to complete this topic Procedures Procedure Name Priority Date/Time Associated Diagnosis Comments ANNUAL BMP BLOOD TEST Routine 10/17/2023 HEMOGLOBIN A1C Routine 09/22/2023 LIPID PANEL Routine 09/22/2023 DIABETES EYE EXAM Routine 08/23/2023 URINE ALBUMIN CREATININE RATIO Routine 05/24/2023 COLONOSCOPY Routine 04/06/2023 SCREENING MAMMOGRAPHY BI 2-VIEW BREAST INC CAD Routine 05/11/2022 8:58 AM EST Encounter for screening mammogram for malignant neoplasm of breast DXA BONE DENSITY STUDY 1+ SITS AXIAL SKEL Routine 01/04/2017 3:57 PM EDT Other specified disorders of bone density and structure, unspecified site HEPATITIS C SCREENING Routine 01/26/2014 from Last 3 Months or Most Recently Relevant to Health Maintenance Results * Annual BMP Blood Test (10/17/2023) Pathologist [facility] Annual BMP Blood Test Abstracted Historical Provider MD KIAH HORNER E * (ABNORMAL) Hemoglobin A1c (09/22/2023) Pathologist [facility] Hemoglobin A1C 7.6(A) 6.5 % Blood Venous blood specimen / Unknown Historical Provider LAB BLOOD ORDERAB LES * Lipid panel (09/22/2023) Pathologist [facility] LDL/HDL Ratio 2 0 - 4 Triglycerides 50 0 - 150 mg/dL Cholesterol 158 0 - 200 mg/dL HDL 76 40 mg/dL LDL Cholesterol 72 0 - 100 mg/dL Blood Venous blood specimen / Unknown Historical Provider LAB BLOOD ORDERAB LES * Diabetes Eye Exam (08/23/2023) Pathologist [facility] Diabetes: Annual Retina Eye Exam Abstracted Historical Provider [facility] * Urine Albumin Creatinine Ratio (05/24/2023) Pathologist [facility] Urine Albumin Creatinine Ratio Abstracted Historical Provider [facility] E * Colonoscopy (04/06/2023) Pathologist [facility] Colonoscopy Abstracted, No interpretation Anatomical Region Laterality Modality Other Historical Provider [facility] * SCREENING MAMMOGRAPHY BI 2-VIEW BREAST INC CAD (05/11/2022 8:58 AM EST) Anatomical Region Laterality Modality Radiographic Sofiya ging 05/05/2021 3:01 PM EST Narrative 05/11/2022 3:39 PM EST This is a summary report. The complete report is available in the patient's medical record. If you cannot access the medical record, please contact the sending organization for a detailed fax or copy. Exam: Screening mammogram Findings: Digital bilateral full-field screening mammography is performed with tomosynthesis and interpreted with the aid of computer-aided detection. ??Comparison is made with 05/05/2021 and as far back as 11/29/2017. Breast parenchyma is composed of scattered fibroglandular densities. ??No new suspicious mass, architectural distortion, or suspicious calcifications. Impression: No mammographic evidence of malignancy. BI-RADS 1 - negative Procedure Note Felicia Huerta MD - 05/08/2023 This is a summary report. The complete report is available in thepatient's medical record. If you cannot access the medical record, pleasecontact the sending organization for a detailed fax or copy. Exam: Screening mammogram Findings: Digital bilateral full-field screening mammography is performedwith tomosynthesis and interpreted with the aid of computer-aideddetection. Comparison is made with 05/05/2021 and as far back as11/29/2017. Breast parenchyma is composed of scattered fibroglandular densities. Nonew suspicious mass, architectural distortion, or suspiciouscalcifications. Impression: No mammographic evidence of malignancy. BI-RADS 1 - negative Gadiel Beasley MD IMG XR PROCEDURES * DXA BONE DENSITY STUDY 1+ RAQUEL LAURENT (01/04/2017 3:57 PM EDT) Anatomical Region Laterality Modality Bone Densitometr y 11/23/2016 11:4 6 AM EDT Narrative 01/04/2017 4:11 PM EDT DEXA SCAN: Lumbar Spine T-score is -0.9. ?? (SD relative to 20-29 y/o adult) Z-score is 1.0. ??(SD relative to age matched peers) This is considered normal bone density by WHO criteria. Left Hip T-score is -0.8. Z-score is +0.9. This is considered normal bone density by WHO criteria. Comparison exam(s): Compared to 03/25/2015, there is a 1.7% increase in bone density measured at the left hip. A statistically significant, 5.4% increase in bone density is measured throughout the lumbar spine compared to 03/25/2015. IMPRESSION: Normal bone density by WHO criteria. The World Health Organization Fracture Risk Assessment is not calculated as all T scores are at or above -1.0. The [facility] Department of Internal Medicine recommends using National Osteoporosis Foundation (NOF) guidelines in treatment decisions related to osteoporosis. NOF guidelines suggest considering treatment for postmenopausal women and men aged 50 or older presenting with the following: History of hip or vertebral fracture. T-score = -2.5 (DXA) at the femoral neck, total hip, or spine, after appropriate evaluation to exclude secondary causes. Low bone mass (T-score between -1.0 and -2.5 at the femoral neck or spine) AND a 10-year probability of a hip fracture = 3% OR a 10-year probability of a major osteoporosis-related fracture = 20% based on the [place]-adapted WHO algorithm Please note that all treatment decisions require clinical judgment and consideration of individual patient factors, including patient preferences, co-morbidities, previous drug use, risk factors not captured in the FRAX model (e.g., frailty, falls, vitamin D deficiency, increased bone turnover, interval significant decline in bone density) and possible under- or over-estimation of fracture risk by FRAX. Optional alternative screening schedule based on faina Bansal., [facility] April 21, 2011 for patients with osteopenia (based on hip BMD T-score) is as follows: * ??advanced osteopenia (T scores -2.00 to -2.49), BMD testing every year * ??moderate osteopenia (T scores -1.50 to -1.99), BMD testing every 5 years mild osteopenia or normal BMD (T scores -1.50 and higher), BMD testing every 15 years Procedure Note Zainab Guevara, DO - 05/05/2023 DEXA SCAN: Lumbar Spine T-score is -0.9. (SD relative to 20-29 y/o adult) Z-score is 1.0. (SD relative to age matched peers) This is considered normal bone density by WHO criteria. Left Hip T-score is -0.8. Z-score is +0.9. This is considered normal bone density by WHO criteria. Comparison exam(s): Compared to 03/25/2015, there is a 1.7% increase inbone density measured at the left hip. A statistically significant, 5.4% increase in bonedensity is measured throughout the lumbar spine compared to 03/25/2015. IMPRESSION: Normal bone density by WHO criteria. The World Health OrganizationFracture Risk Assessment is not calculated as all T scores are at or above -1.0. The [facility] Department of Internal Medicine recommendsusing National Osteoporosis Foundation (NOF) guidelines in treatment decisions related toosteoporosis. NOF guidelines suggest considering treatment for postmenopausal women and menaged 50 or older presenting with the following: History of hip or vertebral fracture. T-score = -2.5 (DXA) at the femoral neck, total hip, or spine, afterappropriate evaluation to exclude secondary causes. Low bone mass (T-score between -1.0 and -2.5 at the femoral neck or spine)AND a 10-year probability of a hip fracture = 3% OR a 10-year probability of a majorosteoporosis-related fracture = 20% based on the [place]-adapted WHO algorithm Please note that all treatment decisions require clinical judgment andconsideration of individual patient factors, including patient preferences, co- morbidities,previous drug use, risk factors not captured in the FRAX model (e.g., frailty, falls, vitaminD deficiency, increased bone turnover, interval significant decline in bone density) andpossible under- or over-estimation of fracture risk by FRAX. Optional alternative screening schedule based on estrellita Bansal al., NEJMJanuary 2011 for patients with osteopenia (based on hip BMD T-score) is as follows: * advanced osteopenia (T scores -2.00 to -2.49), BMD testing every year * moderate osteopenia (T scores -1.50 to -1.99), BMD testing every 5years mild osteopenia or normal BMD (T scores -1.50 and higher), BMD testingevery 15 years Itzel Riley MD IM DXA PROCEDURES * Hepatitis C Screening (01/26/2014) [facility] Hepatitis C Screening Abstracted Historical [facility] from Last 3 Months or Most Recently Relevant to Health Maintenance Care Teams Canvas Cutter Machine Relationship Specialty Start Date End Date Gadiel Beasley MD PCP - General Internal Medicine 12/12/19
--- OUTSIDE RECORDS SUMMARY | 2024-04-24 17:22 | XMS_ITS | Encounter Summary ---
Author Organization [facility] [address] Care Team Providers Care Buffing And Polishing Wheel Repairer Name Role Phone Gadiel Beasley MD Primary Care Provider [phone] Reason for Visit * Reason Onset Date Comments Faxed Order 03/14/2024 Home Care [facility] Encounter Details Date Type Department Care Team ([facility] Contact Info) Description 03/14/2024 Telephone Internal Medicine - [address] [address] Gadiel Beasley MD [address] [place] [id number] Faxed Order (Home Care [facility] ) Social History Tobacco Use Types Packs/Day Years [...] file Not on file Not on file documented as of this encounter Progress Notes * Stephanie Malone - 03/14/2024 8:57 AM EST Orders from Home Care [facility] placed in Gadiel Beasley MD bin. Please complete and fax back to [phone]. Thank you. documented in this encounter Plan of Treatment Upcoming Encounters Date Type Department Care Team (Late st Contact Info) Description 06/03/2024 8:00 AM EST Office Visit Internal Medicine - [facility] [address] [place] [address] Gadiel Beasley MD [address] [place] [address] 06/12/2024 1:30 PM EDT Office Visit Vascular Surgery - [place] [address] [facility] [address] [place] [address] Kierra Romero PA [address] [place] [address] documented as of this encounter Visit Diagnoses Not on filedocumented in this encounter Care Teams Buffing And Polishing Wheel Repairer Relationship Specialty Start Date End Date Gadile Beasley MD PCP - General Internal Medicine 12/12/19 documented as of this encounter
--- OUTSIDE RECORDS SUMMARY | 2024-04-24 17:22 | XMS_ITS | Clinical Summary ---
Author Organization [facility] Address [address] [place] [phone] Phone Care Team Providers Care Urban Anthropologist Name Role Phone Gadiel Beasley MD Primary Care Provider [phone] Social History Tobacco Use Types Packs/Day Years Used Date Smoking Tobacco: Never Assessed Comments Unknown Sex and Gender Information Value Date Recorded Sex Assigned at Not on file Legal Sex Female 10:02 AM EDT Gender Identity Not on file Sexual Orientation Not on file Plan of Treatment Upcoming Encounters Date Type Department Care Team (Late st Contact Info) Description 05/29/2024 3:00 PM EST Office Visit [facility] [address] [phone] Tirso Oh MD [address] [phone] Health Maintenance Due Date Last Done Comments Breast Cancer Screening 1950 Colorectal Cancer Screening: Annual FOBT 1998 Colorectal Cancer Screening: Colonoscopy 1998 Colorectal Cancer Screening: Sigmoidoscopy 1998 Influenza Vaccine (#1) 2023 2, 02/17/2021, 12/31/2019, Additional history exists Diabetes: Hemoglobin A1C 01/29/2024 09/22/2023 Diabetes: Ophthalmology Exam 01/29/2024 Diabetes: Pedal Pulse Checked 01/29/2024 Diabetes: Sensory Foot Exam 01/29/2024 Diabetes: Visual Foot Exam 01/29/2024 Pneumococcal Vaccine: 65+ Years Completed 12/20/2017, 11/23/2016 Hepatitis B Vaccine Aged Out No longe r eligible based on patient's age to complete this topic Insurance [place] Care Teams Urban Anthropologist Relationship Specialty Start Date End Date [place] [address] PCP - General Internal Medicine 01/26/24
== END 2024-04-24 15:50 | disposition home or self-care (01) ==
PROVIDERS: PCP Internal Medicine; Visit Provider Nurse Practitioner Family
DX: G43.709 Chronic migraine without aura, not intractable, without status migrainosus (principal); R42 Dizziness and giddiness; G47.00 Insomnia, unspecified
CPT/HCPCS: 99214

== ENCOUNTER → 2024-04-24 14:51 | Outpatient (BNVA) | payer MEDICAID, SELFPAY | PROVIDERS: PCP Internal Medicine; Visit Provider Nurse Practitioner Family | DX: G43.709 Chronic migraine without aura, not intractable, without status migrainosus (principal); G47.00 Insomnia, unspecified; R42 Dizziness and giddiness | CPT/HCPCS: 99212 ==

== ENCOUNTER → 2024-06-03 10:06 | Outpatient (BNVA) | payer MEDICAID, SELFPAY | PROVIDERS: PCP Internal Medicine; Visit Provider Nurse Practitioner Family ==

== ENCOUNTER 2024-11-18 15:14 | Outpatient (AMB) | payer MEDICAID, SELFPAY ==
[2024-11-18 15:17] VITALS: BP 110/70; PULSE 94; O2SAT 96; BMI 26.6
--- NOTE | 2024-11-18 15:17 | A.OFFVIS_ITS ---
Vital Signs 11/18/24 15:17 Height 4 ft 7 in Weight 114 lb 8 oz BMI 26.6 BP 110/70 Blood Pressure Location Rt brachial Position Sitting Pulse 94 Pulse Source Pulse Oximeter Pulse Oximetry (%) 96 Oxygen Delivery Method Room Air Intake Visit Reasons: Follow Up 6mo Intake Note: Pt presents to the office today for a 6 month follow up for migraines. Accompanied by: Son Allergies diclofenac Allergy (Severe, Verified 11/18/24 15:21) Itching nabumetone (From Relafen) Allergy (Unknown, Verified 11/18/24 15:21) Rash Medication List - Last Reconciled 11/18/24 by PITER Mao acetaminophen ER 650 mg PO Q8H PRN amitriptyline 20 mg (2 x 10 mg) PO BEDTIME 30 days amlodipine 5 mg PO DAILY atorvastatin 80 mg PO DAILY baclofen 5 mg PO BEDTIME 30 days blood sugar diagnostic (FreeStyle Lite Strips) As directed cholecalciferol (vitamin D3) (Vitamin D3) 25 mcg PO DAILY dicyclomine 10 mg PO TID PRN famotidine 20 mg PO DAILY fluticasone propionate 50 mcg/actuation 2 sprays intranasal DAILY fremanezumab-vfrm (Ajovy) 225 mg (1.5 mL) subcut ONCE 30 days lancets (FreeStyle Lancets) As directed magnesium oxide 400 mg PO BID 30 days meclizine 25 - 50 mg PO TID PRN melatonin 5 mg PO QPM 30 days metformin ER 500 mg PO BID metoclopramide HCl 5 mg PO Q4-6H PRN 30 days MDD 2 tabs ondansetron HCl 4 - 8 mg PO Q8H PRN sertraline 50 mg PO DAILY HPI Comments Details: 74-yr-old female presents for f/u visit of headache. Pt is accompanied by her son, Cam (Humble) Pt denies any significant interval medical changes. Per son, patient had hospital ER eval for hypokalemia, which prompted adjustments in her BP medication regimen. Son also notes that nephrology increased the dose of magnesium from q.h.s. to b.i.d. Patient's son reports that since starting Ajovy, the patient's headaches have decreased significantly. Reports she is tolerating Ajovy well. She did not do though as scheduled injection, they just forgot to get it from the pharmacy. Denies recent stabbing headaches. She is still prone to daily dizziness and nausea, for which she takes meclizine daily. Patient?s son reports that since her previous stroke, she has been prone to dizziness and nausea as well as decreased appetite. Patient's son did note that the patient enjoys gardening-states she will work in the garden all day. Baseline headache characteristics: a left-sided heavy or pressure headache a/w photophobia, phonophobia, scalp sensitivity, and dizziness and nausea, activity intolerance- cannot get OOB when severe. [facility] Medical History CVA (cerebrovascular accident due to intracerebral hemorrhage) Hyperlipidemia Vitamin D deficiency Colon polyps Post herpetic neuralgia Osteoarthritis Osteopenia Lumbar spondylosis GERD (gastroesophageal reflux disease) Diabetes HTN (hypertension) Surgical History H/O: hysterectomy History of brain surgery Social History Alcohol intake: never Patient Tobacco Use Status: Never used Tobacco Physical Exam Vital Signs: Last Vital Signs Pulse 94 11/18/24 15:17 BP 110/70 11/18/24 15:17 Pulse Ox 96 11/18/24 15:17 Oxygen Delivery Method Room Air 11/18/24 15:17 BMI result Body Mass Index 26.6 Const General: cooperative and no acute distress Orientation/consciousness: patient oriented x3 Resp Effort & Inspection: normal respiratory effort and able to speak in complete sentences Neuro General: patient oriented x3 Cranial nerves: Yes CN's II-XII intact bilaterally Cognition (Neuro): normal cognition Psych Appearance: grossly normal Mental Status: mental status grossly normal Speech and movement: Normal speech and movement present Affect: normal affect Attitude: cooperative Assessment & Plan Assessment & Plan (1) Chronic migraine without aura: Code(s): G43.709 - Chronic migraine without aura, not intractable, without status migrainosus Category: Medical Qualifiers: Status migrainosus presence: without status migrainosus Intractability: not intractable Qualified Code(s): G43.709 - Chronic migraine without aura, not intractable, without status migrainosus (2) Dizziness: Comment: ? Vestibular migraine? residual from her posterior circulation CVA Code(s): R42 - Dizziness and giddiness Category: Medical (3) Insomnia: Comment: snoring hypersomnia Code(s): G47.00 - Insomnia, unspecified Category: Medical Qualifiers: Insomnia type: primary Qualified Code(s): F51.01 - Primary insomnia Plan For migraine prevention Tx: * Continue Amitriptyline to 20mg qhs- also for sleep- the would not increase further due to patient already has constipation and dry mouth. * Continue Ajovy 225mg/1.5ml autoinjector- injection 225mg subcutaneously once a month. * Continue sertraline 50 mg daily- may help feed dizziness-at age by PCP * Continue Riboflavin 400mg qam * Continue Magnesium 400mg twice a day * Continue Melatonin 5mg daily and evening for sleep. * Migraine prevention treatment contraindications: Beta-blockers or additional antihypertensive treatment, as patient is already on amlodipine and is prone to hypotension and dizziness. For acute migraine Tx: * May use Tylenol 650-1000 mg every 4-6 hours p.r.n. * Trial low-dose metoclopramide 5 mg every 4-6 hours. Migraine headache with nausea/vomiting * Potential side effects include, but are not limited to, drowsiness, involuntary movements * Continue Baclofen 5mg qhs prn for muscle tightness. * Continue Meclizine p.r.n.- managed by PCP. * Continue ondansetron p.r.n.-managed by PCP. Acute migraine treatment contraindications: All triptans and DHE due to history of CVA. All NSAIDs due to diabetes dx, as well as diclofenac allergy. Pt to follow-up in 6 months or sooner prn. Medications: New metoclopramide HCl 5 mg PO Q4-6H PRN 30 tabs 3RF nausea and vomiting and migraine 30 days MDD 2 tabs Changed From amitriptyline 10 - 20 mg (1 - 2 x 10 mg) PO BEDTIME 30 days 60 tabs 3RF To amitriptyline 20 mg (2 x 10 mg) PO BEDTIME 60 tabs 6RF 30 days Refilled fremanezumab-vfrm (Ajovy) administer 225mg sc q month. [place] APPROVED 08/08/24-02/08/25 225 mg (1.5 mL) subcut ONCE 1.5 mL 6RF 30 days magnesium oxide 400 mg PO BID 60 tabs 6RF 30 days baclofen 5 mg PO BEDTIME 30 tabs 6RF 30 days Coding Level of Care Code Est Pt Level 4 (32243) Diagnoses Chronic migraine without aura without status migrainosus, not intractable G43.709 Status migrainosus presence: without status migrainosus Intractability: not intractable Dizziness R42 Primary insomnia F51.01 Insomnia type: primary
--- OUTSIDE RECORDS SUMMARY | 2024-11-18 15:48 | XMS_ITS | Clinical Summary ---
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 Rash right after taking (presentation atypical) Sodium Acetate 05/29/2024 Medications simethicone (Phazyme) 250 mg capsule Take 1 capsule by mouth. 05/15/19 24 Active aspirin-aceta minophen-caff eine (EXCEDRIN MIGRAINE) 250-250-65 mg per tablet Take 1 tablet by mouth. 04/28/19 24 Active hydroCHLOROth iazide (HYDRODIURIL) 25 mg tablet Take 1 tablet (25 mg total) by mouth. 04/10/19 24 Active acetaminophen (TYLENOL 8 HOUR) 650 mg 8 hr tablet Take 1 tablet (650 mg total) by mouth every 8 (eight) hours if needed. 04/04/19 24 Active lidocaine (ZTlido) 1.8 % adhesive patch,medicat ed Apply 1 Package topically. 11/11/19 23 Active fluticasone propionate (FLONASE) 50 mcg/actuation nasal spray Administer 2 sprays into affected nostril(s). 10/07/19 23 Active dicyclomine (BENTYL) 10 mg capsule Take 1 capsule (10 mg total) by mouth. 03/02/20 22 Active amitriptyline (ELAVIL) 10 mg tablet Take 1 tablet (10 mg total) by mouth at bedtime. 10/13/19 22 Active FREESTYLE LANCETS [facility] Use to check bs daily Dx: 11.40. 09/22/19 24 Active blood-glucose meter (FREESTYLE LITE METER MIS) 1 Device by Does not apply route daily. 09/22/19 24 Active blood glucose control high,low (FreeStyle Control) solution Use to calibrate machine Dx: 11.40 10/21/19 23 Active melatonin 5 mg tablet Take 1 Tablet by mouth every evening. 09/27/19 Active nutritional drink (Ensure Active High Protein) liquid Take 1 Can by mouth 2 times daily. 10/12/19 24 Active amLODIPine (NORVASC) 10 mg tablet Take 1 tablet (10 mg total) by mouth 1 (one) time each day. 90 tablet 02/26/20 Active Additional Information Patient taking differently:10 mg oral Daily,5 mg, Reported on 10/09/2024 metFORMIN XR (GLUCOPHAGE-X R) 500 mg 24 hr tablet Take 2 Tablets by mouth 2 times daily (with meals). - OralTake 2 Tablets by mouth 2 times daily (with meals). - Oral 360 tablet 1 06/07/19 25 Active blood sugar diagnostic (FreeStyle Lite Strips) test strip Use as instructedUSE TO TEST BLOOD SUGARS 4 TIMES A DAY 200 strip 1 07/25/19 25 Active tiZANidine (Zanaflex) 4 mg capsule Take 1 capsule (4 mg total) by mouth 3 (three) times a day. 30 each 1 07/25/19 25 026 Active glipiZIDE (GLUCOTROL XL) 2.5 mg 24 hr tablet TAKE 1 TABLET BY MOUTH EVERY DAY 90 tablet 1 08/03/19 25 Active famotidine (PEPCID) 20 mg tablet Take 1 tablet (20 mg total) by mouth 2 (two) times a day if needed for heartburn. Take 1 Tablet by mouth 2 times daily. - Oral 60 tablet 3 08/06/19 25 Active loratadine (CLARITIN) 10 mg tablet Take 1 tablet (10 mg total) by mouth 1 (one) time each day. 90 tablet 1 08/06/19 25 Active cholecalcifer ol (VITAMIN D-3) 25 mcg (1,000 unit) capsule Take 1 capsule (1,000 Units total) by mouth 1 (one) time each day. 90 capsule 09/03/19 25 Active albuterol HFA (PROAIR HFA ; PROVENTIL HFA ; VENTOLIN HFA) 90 mcg/actuation inhaler Inhale 2 puffs by mouth every 6 (six) hours if needed for wheezing or shortness of breath. 6.7 g 09/03/19 25 Active spironolacton e (ALDACTONE) 25 mg tablet Take 1 tablet (25 mg total) by mouth 1 (one) time each day. Active gabapentin (NEURONTIN) 100 mg capsule Take 2 capsules (200 mg total) by mouth at bedtime. at bedtime 180 capsule 1 10/10/19 25 Active meclizine (ANTIVERT) 25 mg tablet Take 1 tablet (25 mg total) by mouth 3 (three) times a day if needed for dizziness. Take 1 Tablet by mouth 3 times daily as needed (dizziness). - Oral 30 tablet 1 10/10/19 25 Active ondansetron (ZOFRAN) 4 mg tablet Take 1-2 tablets (4-8 mg total) by mouth every 8 (eight) hours if needed for nausea or vomiting. 20 tablet 1 10/10/19 25 Active triamcinolone (KENALOG) 0.025 % cream Apply topically 2 (two) times a day. 30 g 1 10/10/19 25 025 Active albuterol HFA (ProAir HFA) 90 mcg/actuation inhaler Inhale 2 puffs by mouth every 4 (four) hours if needed for wheezing or shortness of breath. 8.5 g 10/10/19 25 026 Active atorvastatin (LIPITOR) 80 mg tablet TAKE 1 TABLET BY MOUTH EVERY DAY 90 tablet 11/14/19 25 Active sertraline (ZOLOFT) 100 mg tablet TAKE 1 TABLET BY MOUTH EVERY DAY 90 tablet 1 11/14/19 25 Active sertraline (ZOLOFT) 100 mg tablet TAKE 1 TABLET BY MOUTH EVERY DAY 90 tablet 08/17/19 25 025 Discontinued atorvastatin (LIPITOR) 80 mg tablet TAKE 1 TABLET BY MOUTH 1 TIME EACH DAY. 90 tablet 08/17/19 25 025 Discontinued doxycycline (VIBRAMYCIN) 100 mg capsule Take 1 capsule (100 mg total) by mouth 2 (two) times a day for 10 days. Take with at least 8 ounces (large glass) of water, do not lie down for 30 minutes after. Administer 2 hours before or after multivitamins, antacids, or other products containing polyvalent cations (i.e., calcium, iron, magnesium, selenium, zinc). 20 each 10/10/19 25 025 benzonatate (TESSALON) 200 mg capsule Take 1 capsule (200 mg total) by mouth 3 (three) times a day if needed for cough. Do not crush or chew. 42 capsule 10/10/19 25 025 Active Problems Problem Noted Date Diagnosed Date Gastroesophageal reflux disease 06/03/2024 Swelling of both ankles 02/08/2024 HTN (hypertension) 05/31/2023 Overview (05/31/2023): 03/09/16 negative maximal stress test. Current mild episode of theresa r depressive disorder ([facility] V24) 02/07/2022 Cerebellar stroke ([facility] V24, [facility] V28) 05/2021 Overview (05/31/2023): Last Assessment & Plan: Patient [...] patient had a referral placed with Dr. Julissa jackson in June 2021, patient's son states he [...] neuropathy, without long-term current use of insulin ([facility] V24, [facility] V28) 12/20/2017 Overview (05/31/2023): Ophth is Dr Almas Kevin Osteoarthritis of bilateral glenohumeral joints 09/13/2017 Primary osteoarthritis of both knees 09/13/2017 Spondylosis of lumbar region without myelopathy or radiculopathy 09/13/2017 Colon polyps 08/16/2017 Osteopenia 05/13/2015 Vitamin D deficiency 02/04/2015 Hyperlipidemia 05/16/2014 Encounters Date Type Department Care Team Description 11/11/2024 Telephone [facility] [place] [phone] Gadiel Beasley MD Request For Order(s) 11/05/2024 [facility] [address] [place] [place] [address] [place] [phone] Gadiel Beasley MD Request For Order(s) 10/18/2024 [facility] [address] [place], [place] [address], [place] [phone] Gadiel Beasley MD Faxed Order ([facility] ) 10/09/2024 4:17 PM EDT - 10/09/2024 11:59 PM EDT Hospital Encounter [facility]ray - [facility] [address] [place], [place] [address], [place] [phone] Acute cough Discharge Disposition: Home or Self Care 10/09/2024 3:15 PM EDT [facility] [address] [place] [place] [address] [place] [phone] Gadiel Beasley MD Type 2 diabetes mellitus with diabetic neuropathy, without long-term current use of insulin ([facility] V24, [facility] V[facility]) (Primary Dx); Acute cough; Polyarthralgia 09/10/2024 Billing Patient Not Present Internal Medicine - [address] [place], [place] [phone] Gadiel Beasley MD Generalized anxiety disorder (Primary Dx); Type 2 diabetes mellitus with hyperglycemia, unspecified whether fdc insulin use ([facility] V24, [facility] V28); Essential (primary) hypertension; Hyperlipidemia, unspecified hyperlipidemia type; Insomnia due to medical condition 09/06/2024 Telephone Internal Medicine - [address] [place], [place] [phone] Gadiel Beasley MD Faxed Order (Home [facility] ) 09/02/2024 5:16 PM EDT - 09/02/2024 11:59 PM EDT Hospital Encounter Xray - [address] [phone] Acute cough Discharge Disposition: Home or Self Care 09/02/2024 5:00 PM EDT Office Visit Walk-In Clinic - [address] [phone] Donald Chacko PA Acute bacterial rhinosinusitis (Primary Dx) 08/20/2024 Telephone Internal Medicine - [address] [phone] Gadiel Beasley MD Faxed Order (Prior Authorization Paperwork ) from Last 3 Months Immunizations Name Administration [...] dehiscence and had second surgery done [facility] COLONOSCOPY 07/27/2017 PROCEDURE: HISTORICAL COLONOSCOPY; COMMENT: 4 mm polyp ascending colon: histolgy obscured by cautery artifact; repeat in 5 yrs. Medical History Medical History Date Comments Arthritis DX:Arthritis HTN (hypertension) DX:HTN (hyper tension) Hyperlipidemia 05/16/2014 DX:Hyperlipidemi a Osteopenia DX:Osteopenia Diabetes mellitus type 2, co ntrolled, with complications ([facility] V24, [facility] V28) DX:Diabetes mellitus type 2, controlled, with complications ([facility]) Colon polyps 08/16/2017 DX:Colon polyps Gastroesophageal reflux disease 06/03/2024 Family History Medical History Relation Name Comments [...] Date Smoking Tobacco: Never Smokeless Tobacco: Never Tobacco Cessation:Counseling Given: Not Answered Alcohol Use Standard Drinks/Week Comments No 0 (1 standard drink = 0.6 oz pur e alcohol) Comments No Sex and Gender Information Value Date Recorded Sex Assigned at Not on file Legal Sex Female 11:00 AM EST Gender Identity Not on file Sexual Orientation Not on file Obstetrics History Last Filed Vital Signs Vital Sign Reading Time Taken Comments Blood Pressure 123/65 10/09/2024 3:37 PM EDT Pulse 88 10/09/2024 3:37 PM EDT Temperature 36.9 C (98.4 F) 09/02/2024 5:01 PM EDT Respiratory Rate 14 06/03/2024 8:00 AM EST Oxygen Saturation 97% 09/02/2024 5:01 PM EDT Inhaled Oxygen Concentration - - Weight 51.4 kg (113 lb 6.4 oz) 10/09/2024 3:37 P M EDT Height 137.2 cm (4' 6 ) 06/03/2024 8:00 AM EST Body Mass Index 27.34 06/03/2024 8:00 AM EST Plan of Treatment Upcoming Encounters Date Type Department Care Team (Late st Contact Info) Description 02/10/2025 3:15 PM EST Office Visit Internal Medicine - [address] [phone] Gadiel Beasley MD [address] [place] [address] Health Maintenance Due Date Last Done Comments Diabetes: Annual Foot Exam 08/04/1959 Zoster Vaccines (1 of 2) 08/04/1999 Falls Risk Assessment 03/12/2022 Social Influencers of Health Screening 03/12/2022 COVID-19 Vaccine ( season) 2023 09/16/2020, 08/26/2020 Depression Screening 04/03/2024 RSV Immunization Adult Patients (1 - 1-dose 75+ series) 2024 Influenza Vaccine (#1) 2024 , 02/14/2022, 02/17/2021, Additional history exists Diabetes: Blood Sugar Control Test (HGBA1C) 04/11/2025 10/09/2024, 01/24/2024, 09/22/2023, Additional history exists Diabetes: Annual Retina Eye Exam 08/28/2025 08/28/2024, 08/23/2023 Diabetes: Annual Urine Albumin-Creatinine Ratio (uACR) 10/09/2025 10/09/2024, 05/24/2023 Diabetes: Annual GFR (Glomerular Filtration Rate) 10/09/2025 10/09/2024, 07/03/2024, 07/03/2024, Additional history exists Hypertension/CHF/CAD Annual BMP Blood Test 10/09/2025 10/09/2024, 07/03/2024, 07/03/2024, Additional history exists DTaP,Tdap,and Td Vaccines (2 - Td or Tdap) 11/23/2026 11/23/2016 Osteoporosis Screening (Bone Density Screening) 01/04/2027 01/04/2017 Colorectal Cancer Screening: Colonoscopy 04/06/2028 04/06/2023 Cholesterol Screening (Lipid Panel) 10/09/2029 10/09/2024, 01/24/2024, 09/22/2023, Additional history exists Hepatitis C Screening Completed 01/26/2014 Pneumococcal Vaccine: 50+ Years Completed 12/20/2017, 11/23/2016 Breast Cancer Screening Discontinued 05/11/19, 05/05/2021, 04/29/2020, Additional history exists HIB Vaccines Aged Out [...] patient's age to complete this topic Meningococcal B Vaccine Aged Out No l onger eligible based on patient's age to complete this topic RSV Immunization Patients Under 20 months Aged Out No longer eligible based on patient's age to complete this topic Varicella Vaccines Aged Out No longer eligible based on patient's age to complete this topic Procedures Procedure Name Priority Date/Time Associated Diagnosis Comments XR CHEST 2 VIEWS Routine 10/09/2024 4:29 PM EDT Acute cough COMPREHENSIVE METABOLIC PANEL Routine 10/09/2024 4:10 PM EDT Type 2 diabetes mellitus with diabetic neuropathy, without long-term current use of insulin (CMS/HCC V24, CMS/HCC V28) HEMOGLOBIN A1C Routine 10/09/2024 4:10 PM EDT Type 2 diabetes mellitus with diabetic neuropathy, without long-term current use of insulin (CMS/HCC V24, CMS/HCC V28) LIPID PANEL WITH REFLEX TO DIRECT LDL Routine 10/09/2024 4:10 PM EDT Type 2 diabetes mellitus with diabetic neuropathy, without long-term current use of insulin ([facility] V24, [facility] V28) MICROALBUMIN CREATININE URINE RATIO Routine 10/09/2024 4:10 PM EDT Type 2 diabetes mellitus with diabetic neuropathy, without long-term current use of insulin (CMS/HCC V24, [facility] V28) POC RESPIRATORY SYNCYTIAL VIRUS Routine 09/02/2024 5:37 PM EDT Acute bacterial rhinosinusitis XR CHEST 2 VIEWS STAT 09/02/2024 5:22 PM EDT Acute cough EXTERNAL DIABETIC RETINA EYE EXAM 08/28/2024 COLONOSCOPY Routine 04/06/2023 SCREENING MAMMOGRAPHY BI 2-VIEW [...] Recently Relevant to Health Maintenance Results * XR Chest 2 Views (10/09/2024 4:29 PM EDT) Only the most recent of2 resultswithin the time period is included. Anatomical Region Laterality Modality Body Radiographic Sofiya ging 10/09/2024 4:33 PM EDT Impressions 10/09/2024 4:39 PM EDT New linear density which may represent fluid in the fissure versus subsegmental atelectasis. The patient has very been prescribed steroids and antibiotics. Follow-up chest x-ray in 4-6 weeks is suggested. -------- FINAL REPORT -------- Dictated By: Nissa Matthew Dictated Date: 10/09/2024 16:33 ET Assigned Physician: Nissa Matthew Reviewed and Electronically Signed By: Nissa Matthew Signed Date: 10/09/2024 16:39 ET Workstation ID: [id number] Transcribed By: Self Edit Transcribed Date: 10/09/2024 16:33 ET Narrative 10/09/2024 4:39 PM EDT CHEST, TWO VIEWS HISTORY: Productive cough. TECHNIQUE: Frontal and lateral views of the chest. PRIOR: Chest x-ray 09/02/2024. FINDINGS: There is partial elevation of the right hemidiaphragm, unchanged. There is minimal linear density in the anterior lower thorax on the lateral view, and this may represent fluid in the fissure versus linear subsegmental atelectasis. No pleural effusion is seen. No pneumothorax is seen. The cardiac diameter is within normal limits. No acute or aggressive appearing bony abnormalities are seen. There is curvature and degenerative change of the spine. Procedure Note Nissa Matthew MD - 10/09/2024 CHEST, TWO VIEWS HISTORY: Productive cough. TECHNIQUE: Frontal and lateral views of the chest. PRIOR: Chest x-ray 09/02/2024. FINDINGS: There is partial elevation of the right hemidiaphragm,unchanged. There is minimal linear density in the anterior lower thorax on thelateral view, and this may represent fluid in the fissure versus linearsubsegmental atelectasis. No pleural effusion is seen. No pneumothorax is seen. The cardiac diameter is within normal limits. No acute or aggressive appearing bony abnormalities are seen. There iscurvature and degenerative change of the spine. IMPRESSION: New linear density which may represent fluid in the fissure versussubsegmental atelectasis. The patient has very been prescribed steroidsand antibiotics. Follow-up chest x-ray in 4-6 weeks is suggested. -------- FINAL REPORT -------- Dictated By: Nissa Matthew Dictated Date: 10/09/2024 16:33 ET Assigned Physician: Nissa Matthew Reviewed and Electronically Signed By: Nissa Matthew Signed Date: 10/09/2024 16:39 ET Workstation ID: [id number] Transcribed By: Self Edit Transcribed Date: 10/09/2024 16:33 ET us Gaidel Beasley MD IMG XR PROCEDURES Final Result * Lipid panel with reflex to direct LDL (10/09/2024 4:10 PM EDT) Cholesterol 103 0 - 200 mg/dL LAB CHEMISTRY METHOD 10/09/2024 7:27 PM EDT [facility] Triglycerides 99 0 - 150 mg/dL LAB CHEMISTRY METHOD 10/09/2024 7:27 PM EDT [facility] HDL 63 >=40 mg/dL LAB CHEMISTRY METHOD 10/09/2024 7:27 PM EDT [facility] LDL Calculated 20 0 - 100 mg/dL LAB CHEMISTRY METHOD 10/09/2024 7:27 PM EDT [facility] VLDL Cholesterol Ray 19.8 mg/dL LAB CHEMISTRY METHOD 10/09/2024 7:27 PM EDT [facility] Non HDL Chol. (LDL+VLDL) 40 <145 mg/dL LAB CHEMISTRY METHOD 10/09/2024 7:27 PM EDT [facility] Chol/HDL Ratio 1.6 0.0 - 4.4 LAB CHEMISTRY METHOD 10/09/2024 7:27 PM EDT [facility] Blood Venous blood specimen / Unknown Venipuncture / Unknown 10/09/2024 4:10 PM EDT 10/09/2024 4:10 PM EDT us Gadiel Beasley MD LAB BLOOD ORDERABLES Final Res ult [facility] [address] [place] [address], * Microalbumin creatinine urine ratio (10/09/2024 4:10 PM EDT) Creatinine, Urine 57.0 mg/dL LAB CHEMISTRY METHOD 10/09/2024 8:15 PM EDT [facility] Microalb, Ur <5.0 0.0 - 29.0 mg/L LAB CHEMISTRY METHOD 10/09/2024 8:15 PM EDT [facility] Microalb/Creat Ratio <9 <30 mg/g creat LAB CHEMISTRY METHOD 10/09/2024 8:15 PM EDT [facility] Urine Urine specimen obtained by clean catch procedure / Unknown Non-blood Collection / Unknown 10/09/2024 4:10 PM EDT 10/09/2024 4:10 PM EDT us Gadiel Beasley MD LAB URINE ORDERABLES Final Res ult Performing Organization Address City/[facility]/ZIP Co de Phone Number [facility] [address] [place] [address], [place] [phone] * (ABNORMAL) Hemoglobin A1c (10/09/2024 4:10 PM EDT) Hemoglobin A1C 6.9(H) <6.5 % LAB CHEMISTRY METHOD 10/10/2024 11:52 AM EDT [facility] Mean Bld Glu Estim. 151 mg/dL LAB CHEMISTRY METHOD 10/10/2024 11:52 AM EDT [facility] Blood Venous blood specimen / Unknown Venipuncture / Unknown 10/09/2024 4:10 PM EDT 10/09/2024 4:10 PM EDT us Gadiel Beasley MD LAB BLOOD ORDERABLES Final Res ult Performing Organization Address City/[facility]/ZIP Co de Phone Number [facility] [address] [place] [address], [place] [phone] * (ABNORMAL) Comprehensive metabolic panel (10/09/2024 4:10 PM EDT) Sodium 139 133 - 145 mmol/L LAB CHEMISTRY METHOD 10/09/2024 7:27 PM EDT [facility] Potassium 4.3 3.5 - 5.5 mmol/L LAB CHEMISTRY METHOD 10/09/2024 7:27 PM [facility] Chloride 104 96 - 110 mmol/L LAB CHEMISTRY METHOD 10/09/2024 7:27 PM [facility] CO2 28 21 - 32 mmol/L LAB CHEMISTRY METHOD 10/09/2024 7:27 PM [facility] Anion Gap 7 3 - 11 LAB CHEMISTRY METHOD 10/09/2024 7:27 PM [facility] Glucose 118(H) 70 - 100 mg/dL LAB CHEMISTRY METHOD 10/09/2024 7:27 PM [facility] BUN 6 5 - 25 mg/dL LAB CHEMISTRY METHOD 10/09/2024 7:27 PM [facility] Creatinine 0.71 0.50 - 1.10 mg/dL LAB CHEMISTRY METHOD 10/09/2024 7:27 PM [facility] eGFR 89 >=60 mL/min/1. 73m2 LAB CHEMISTRY METHOD 10/09/2024 7:27 PM [facility] Comment:Calculation based on the Chronic Kidney Disease Epidemiology Collaboration (CKD-EPI) equation refit without adjustment for race. BUN/Creatinine Ratio 8.5 LAB CHEMISTRY METHOD 10/09/2024 7:27 PM [facility] Calcium 9.5 8.5 - 10.5 mg/dL LAB CHEMISTRY METHOD 10/09/2024 7:27 PM [facility] AST (SGOT) 30 10 - 42 unit/L LAB CHEMISTRY METHOD 10/09/2024 7:27 PM [facility] ALT (SGPT) 31 10 - 60 unit/L LAB CHEMISTRY METHOD 10/09/2024 7:27 PM [facility] Alkaline Phosphatase 46 42 - 121 unit/L LAB CHEMISTRY METHOD 10/09/2024 7:27 PM [facility] Total Protein 7.6 6.0 - 8.0 g/dL LAB CHEMISTRY METHOD 10/09/2024 7:27 PM EDT [facility] Albumin 3.6 3.2 - 5.0 g/dL LAB CHEMISTRY METHOD 10/09/2024 7:27 PM EDT [facility] Total Bilirubin 0.3 0.0 - 1.4 mg/dL LAB CHEMISTRY METHOD 10/09/2024 7:27 PM EDT [facility] Blood Venous blood specimen / Unknown Venipuncture / Unknown 10/09/2024 4:10 PM EDT 10/09/2024 4:10 PM EDT Gadiel Beasley MD LAB BLOOD ORDERABLES Final Res ult [facility] [address] [place] [address], * POC respiratory syncytial virus manually resulted (09/02/2024 5:37 PM EDT) RSV Rapid AG POC Negative Negative Internal Control Pass Yes Yes Swab Nasopharyngeal structure / Unknown 09/02/2024 5:37 PM EDT Donald BRODERICK POINT OF CARE TEST ENTER/E DIT ORDERABLES Final Result * External Diabetic Retina Eye Exam Report (08/28/2024) Anatomical Region Laterality Modality Ultrasound Provider [facility] IMG US PROCEDURES Final Result * Hm Colonoscopy (04/06/2023) Colonoscopy Abstracted, No interpretation Anatomical Region Laterality Modality Other Historical Provider HEALTH MAINTENANCE Final Result * SCREENING MAMMOGRAPHY BI 2-VIEW BREAST INC [...] interpreted with the aid of computer-aided detection. Comparison is made with 05/05/2021 and as far back as 11/29/2017. Breast parenchyma is composed of scattered fibroglandular densities. No new suspicious mass, architectural distortion, or suspicious [...] negative Gadiel Beasley MD IMG XR PROCEDURES Final Result * DXA BONE DENSITY STUDY 1+ RAQUEL GLYNN (01/04/2017 3:57 PM EDT) Anatomical Region Laterality [...] scores are at or above -1.0. The [facility] Department of Internal Medicine recommends using National [...] alternative screening schedule based on faina Bansal., [facility] April 21, 2011 for patients with osteopenia (based on hip BMD T-score) is as follows: * advanced osteopenia (T scores -2.00 to -2.49), BMD testing every year * moderate osteopenia (T scores -1.50 to -1.99), BMD testing every 5 years mild osteopenia or normal BMD (T scores -1.50 and higher), BMD testing every 15 years Procedure Note Zainab Guevara DO - 05/05/2023 DEXA SCAN: Lumbar Spine [...] scores are at or above -1.0. The [facility] Department of Internal Medicine recommendsusing National Osteoporosis [...] alternative screening schedule based on faina Bansal., [facility] for patients with osteopenia (based on hip BMD T-score) is as follows: * advanced osteopenia (T scores -2.00 to -2.49), BMD testing every year * moderate osteopenia (T scores -1.50 to -1.99), BMD testing every 5years mild osteopenia or normal BMD (T scores -1.50 and higher), BMD testingevery 15 years Itzel Riley MD IMG DXA PROCEDURES Final Re sult * Hepatitis C Screening (01/26/2014) Pathologist [facility] Hepatitis C Screening Abstracted us Historical Provider HEALTH MAINTENANCE Final Result from Last 3 Months or Most Recently Relevant to Health Maintenance Insurance MEDICAID - [place] Care 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
--- OUTSIDE RECORDS SUMMARY | 2024-11-18 15:48 | XMS_ITS | Clinical Summary ---
Author Organization [facility] Address [address] [phone] Phone Care Team Providers Care Marketing Professor Name Role Phone Gadiel Beasley MD Primary Care Provider [phone] Allergies Active Allergy Reactions Criticality Noted Date Comments Nabumetone Cough 05/29/2024 Sodium Acetate 05/29/2024 Medications acetaminophen (TYLENOL 8 HOUR) 650 MG 8 hr tablet Take 650 mg by mouth 4 Active albuterol HFA (PROVENTIL HFA;VENTOLIN HFA) 108 (90 Base) MCG/ACT inhaler Inhale 2 puffs every 6 hours as needed 5 05/15/19 26 Active amitriptyline (ELAVIL) 10 MG tablet Take 1 tablet by mouth every night 2 Active atorvastatin (LIPITOR) 80 MG tablet Take 80 mg by mouth in the morning. 5 Active famotidine (PEPCID) 20 MG tablet Take 1 Tablet by mouth 2 times daily. - Oral Active fluticasone (FLONASE) 50 MCG/ACT nasal spray Administer 2 sprays into affected nostril(s) 3 Active gabapentin (NEURONTIN) 100 MG capsule Take 2 capsules by mouth every night 5 Active hydroCHLOROthia zide 25 MG tablet Take 25 mg by mouth 4 Active loratadine (CLARITIN) 10 MG tablet Take 10 mg by mouth in the morning. 4 Active metFORMIN XR (GLUCOPHAGE-XR) 500 MG 24 hr tablet Take 2 Tablets by mouth 2 times daily (with meals). - Oral Active pantoprazole (PROTONIX) 40 MG EC tablet Take 40 mg by mouth in the morning and 40 mg in the evening. 3 Active meclizine (ANTIVERT) 25 MG tablet TAKE 1 TABLET BY MOUTH UP TO 3 TIMES A DAY NEEDED FOR DIZZINESS. Active ondansetron (ZOFRAN) 4 MG tablet TAKE 1-2 TABLETS BY MOUTH EVERY 8 HOURS NEEDED FOR NAUSEA. Active Melatonin Maximum Strength 5 MG tablet Take 1 tablet by mouth at bed time 4 Active spironolactone (Aldactone) 25 MG tablet Take 1 tablet (25 mg total) by mouth 1 (one) time each day 30 tablet 11 5 06/18/19 26 Active amLODIPine (NORVASC) 5 MG tablet Take 1 tablet (5 mg total) by mouth 1 (one) time each day 30 tablet 5 5 12/15/19 25 Active magnesium oxide (FT Magnesium Oxide) 400 (240 Mg) MG tablet Take 400 mg by mouth 2 (two) times a day 60 tablet 5 5 Active Active Problems Problem Noted Date Diagnosed Date Swollen ankle region 02/08/2024 Hypertensive disorder 05/31/2023 Overview (05/28/2024): 03/09/16 negative maximal stress test. Mild major depression, single episode 02/07/2022 Cerebellar stroke 02/02/2022 Overview (05/28/2024): Last Assessment & Plan: Patient is just [...] had a referral placed with Dr. Julissa jacksno in June 2021, patient's son states he thinks they called to set up an appointment at 1 point but the patient was not in the area at that time and she never followed up with neurology. They will call with any concerns or questions, like wound drainage, weakness or increasing headache. 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 [address] [phone] Tirso Oh MD Hypokalemia; Hypomagnesemia from Last 3 Months Social History Tobacco Use Types Packs/Day Years Used Date Smoking Tobacco: Never Assessed Comments Unknown Sex and Gender Information Value Date Recorded Sex Assigned at Not on file Legal Sex Female 10:02 AM EDT Gender Identity Not on file Sexual Orientation Not on file Last Filed Vital Signs Vital Sign Reading Time Taken Comments Blood Pressure 110/60 07/22/2024 3:59 PM EDT Pulse 62 07/22/2024 3:59 PM EDT Temperature - - Respiratory Rate - - Oxygen Saturation 98% 05/29/2024 3:10 PM EST Inhaled Oxygen Concentration - - Weight 50.3 kg (111 lb) 07/22/2024 3:59 PM EDT Height - - Body Mass Index - - Plan of Treatment Upcoming Encounters Date Type Department Care Team (Late st Contact Info) Description 11/21/2024 Orders Only [facility] [address] [phone] Tirso Oh MD [address] [facility] [address] [place] [phone] Hypokalemia; Hypomagnesemia 01/22/2025 2:00 PM EDT Office Visit [facility] [address] [facility] [address] [place] [phone] Tirso Oh MD [address] [phone] Health Maintenance Due Date Last Done Comments Breast Cancer Screening 1950 Colorectal Cancer Screening: Annual FOBT 1998 Colorectal Cancer Screening: Colonoscopy 1998 Colorectal Cancer Screening: Sigmoidoscopy 1998 Diabetes: Ophthalmology Exam 01/29/2024 Diabetes: Pedal Pulse Checked 01/29/2024 Diabetes: Sensory Foot Exam 01/29/2024 Diabetes: Visual Foot Exam 01/29/2024 Influenza Vaccine (#1) 2024 , 02/17/2021, 12/31/2019, Additional history exists Diabetes: Hemoglobin A1C 01/09/2025 10/09/2024, 09/02 Pneumococcal Vaccine: 50+ Years Completed 12/20/2017, 11/23/2016 Hepatitis B Vaccine Aged Out No longe r eligible based on patient's age to complete this topic Insurance Medicaid [place] Care Teams Marketing Professor Relationship Specialty Start Date End Date Gadiel Beasley [place] [address] PCP - General Internal Medicine 01/26/24
== END 2024-11-18 16:06 | disposition home or self-care (01) ==
LOC: HO.HSMS 15:15
PROVIDERS: PCP Internal Medicine; Visit Provider Nurse Practitioner Family
DX: G43.709 Chronic migraine without aura, not intractable, without status migrainosus (principal); R42 Dizziness and giddiness; F51.01 Primary insomnia
CPT/HCPCS: 99214

== ENCOUNTER → 2024-11-18 15:14 | Outpatient (BNVA) | payer MEDICAID, SELFPAY | PROVIDERS: PCP Internal Medicine; Visit Provider Nurse Practitioner Family | DX: G43.709 Chronic migraine without aura, not intractable, without status migrainosus (principal); R42 Dizziness and giddiness; F51.01 Primary insomnia; Z86.73 Personal history of transient ischemic attack (TIA), and cerebral infarction without residual deficits; Z79.899 Other long term (current) drug therapy | CPT/HCPCS: 99212 ==